=== PATIENT | female | born 1950 | race Caucasian/White ===

== ENCOUNTER 2018-02-15 11:14 | Inpatient (IN) | payer MEDICARE ==
--- NOTE | 2018-02-15 11:42 | ED ---
General Adult HPI - General Chief complaint: Shortness of Breath Stated complaint: heart concerns Time Seen by Provider: 02/15/18 11:23 Source: patient, RN notes reviewed, old records reviewed Mode of arrival: wheelchair Limitations: no limitations - History of Present Illness Initial comments: 67-year-old female with history of asthma presents from her primary care's office with worsening bilateral lower extremity swelling, cough, and worsening dyspnea. Patient is currently on Symbicort, no other medications. She has no history of CAD or heart failure. Over the past several months she has had significant lower extremity edema with fluid-filled bulla. Denies productive cough. Denies fever or chills. Denies URI symptoms. Denies central chest pain. - Related Data Home Medications Medication Instructions Recorded Confirmed Budesonide/Formoterol Fumarate 2 puff INHALATION BID 02/15/18 02/15/18 [Symbicort 160-4.5 Mcg Inhaler] Naproxen Sodium [Aleve] 220 mg PO BID PRN 02/15/18 02/15/18 Allergies Allergy/AdvReac Type Severity Reaction Status Date / Time aspirin Allergy Unknown Verified 02/15/18 12:09 Penicillins Allergy Unknown Verified 02/15/18 12:09 pollen extracts Allergy Unknown Verified 02/15/18 12:09 ragweed pollen Allergy Unknown Verified 02/15/18 12:09 Sulfa (Sulfonamide Allergy Unknown Verified 02/15/18 12:09 Antibiotics) dust Allergy Unknown Uncoded 02/15/18 11:22 Review of Systems ROS Statement: Those systems with pertinent positive or pertinent negative responses have been documented in the HPI. ROS Other: All systems not noted in ROS Statement are negative. Past Medical History Past Medical History: Asthma, Osteoarthritis (OA) History of Any Multi-Drug Resistant Organisms: None Reported Past Surgical History: Tonsillectomy Past Psychological History: No Psychological Hx Reported Smoking Status: Never smoker Past Alcohol Use History: Rare Past Drug Use History: None Reported General Exam Limitations: no limitations General appearance: alert, in no apparent distress Head exam: Present: atraumatic, normocephalic Eye exam: Present: normal appearance, PERRL ENT exam: Present: normal exam Neck exam: Present: normal inspection. Absent: tenderness, meningismus Respiratory exam: Present: wheezes, rales Cardiovascular Exam: Present: regular rate, normal rhythm GI/Abdominal exam: Present: soft. Absent: distended, tenderness Extremities exam: Present: pedal edema Neurological exam: Present: alert, oriented X3. Absent: motor sensory deficit Psychiatric exam: Present: normal affect, normal mood Skin exam: Present: warm, dry. Absent: cyanosis, diaphoretic Course Vital Signs 02/15/18 02/15/18 02/15/18 11:16 12:29 13:42 Temperature 97.2 F L Pulse Rate 85 62 56 L Respiratory 24 18 18 Rate Blood Pressure 134/64 142/66 148/72 O2 Sat by Pulse 95 100 100 Oximetry EKG Findings - EKG Comments: EKG Findings:: EKG atrial fibrillation, with PVC, left axis deviation rate of 80 , QRS duration 88, QTC [address] segment changes Medical Decision Making - Medical Decision Making 67-year-old female presents from the primary care's office with dyspnea, cough, and lower extremity swelling. Patient has no history of heart failure. On exam she does have bilateral Rales, and significant lower extremity edema with fluid filled bulla. EKG is atrial fibrillation with no known history of atrial fibrillation this is rate controlled. No definitive signs of ischemia. Chest x -ray shows pulmonary edema. BNP is elevated at 2890, troponin elevated 0.139. Patient is given Lasix, started on heparin for both atrial fibrillation and troponin elevation. Case discussed with Dr. Mtz who will accept the admission. Cardiology placed on consult for new onset congestive heart failure , elevated troponin, and new onset atrial fibrillation. Echo will be obtained. TSH is added on and pending. - Lab Data Result diagrams: 02/15/18 13:12 02/15/18 12:15 Lab Results 02/15/18 02/15/18 02/15/18 Range/Units 12:15 12:15 13:12 WBC 7.3 (3.8-10.6) k/uL RBC 5.47 H (3.80-5.40) m/uL Hgb 15.7 (11.4-16.0) gm/dL Hct 51.7 H (34.0-46.0) % MCV 94.4 (80.0-100.0) fL MCH 28.7 (25.0-35.0) pg MCHC 30.4 L (31.0-37.0) g/dL RDW 14.6 (11.5-15.5) % Plt Count 144 L (150-450) k/uL Neutrophils % 77 % Lymphocytes % 10 % Monocytes % 6 % Eosinophils % 5 % Basophils % 0 % Neutrophils # 5.6 (1.3-7.7) k/uL Lymphocytes # 0.7 L (1.0-4.8) k/uL Monocytes # 0.5 (0-1.0) k/uL Eosinophils # 0.4 (0-0.7) k/uL Basophils # 0.0 (0-0.2) k/uL Hypochromasia Marked PT (9.0-12.0) sec INR (<1.2) APTT (22.0-30.0) sec Sodium 146 H (137-145) mmol/L Potassium 4.4 (3.5-5.1) mmol/L Chloride 107 (98-107) mmol/L Carbon Dioxide 27 (22-30) mmol/L Anion Gap 12 mmol/L BUN 60 H (7-17) mg/dL Creatinine 1.18 H (0.52-1.04) mg/dL Est GFR (CKD-EPI)AfAm 55 (>60 ml/min/1.73 sqM) Est GFR (CKD-EPI)NonAf 47 (>60 ml/min/1.73 sqM) Glucose 87 (74-99) mg/dL Calcium 8.6 (8.4-10.2) mg/dL Magnesium 2.0 (1.6-2.3) mg/dL Total Bilirubin 0.9 (0.2-1.3) mg/dL AST 38 H (14-36) U/L ALT 32 (9-52) U/L Alkaline Phosphatase 135 H (38-126) U/L Total Creatine Kinase (30-135) U/L CK-MB (CK-2) (0.0-2.4) ng/mL CK-MB (CK-2) Rel Index Troponin I (0.000-0.034) ng/mL NT-Pro-B Natriuret Pep pg/mL Total Protein 6.7 (6.3-8.2) g/dL Albumin 3.4 L (3.5-5.0) g/dL 02/15/18 02/15/18 02/15/18 Range/Units 13:12 13:12 13:12 WBC (3.8-10.6) k/uL RBC (3.80-5.40) m/uL Hgb (11.4-16.0) gm/dL Hct (34.0-46.0) % MCV (80.0-100.0) fL MCH (25.0-35.0) pg MCHC (31.0-37.0) g/dL RDW (11.5-15.5) % Plt Count (150-450) k/uL Neutrophils % % Lymphocytes % % Monocytes % % Eosinophils % % Basophils % % Neutrophils # (1.3-7.7) k/uL Lymphocytes # (1.0-4.8) k/uL Monocytes # (0-1.0) k/uL Eosinophils # (0-0.7) k/uL Basophils # (0-0.2) k/uL Hypochromasia PT 11.6 (9.0-12.0) sec INR 1.2 H (<1.2) APTT 24.5 (22.0-30.0) sec Sodium (137-145) mmol/L Potassium (3.5-5.1) mmol/L Chloride (98-107) mmol/L Carbon Dioxide (22-30) mmol/L Anion Gap mmol/L BUN (7-17) mg/dL Creatinine (0.52-1.04) mg/dL Est GFR (CKD-EPI)AfAm (>60 ml/min/1.73 sqM) Est GFR (CKD-EPI)NonAf (>60 ml/min/1.73 sqM) Glucose (74-99) mg/dL Calcium (8.4-10.2) mg/dL Magnesium (1.6-2.3) mg/dL Total Bilirubin (0.2-1.3) mg/dL AST (14-36) U/L ALT (9-52) U/L Alkaline Phosphatase (38-126) U/L Total Creatine Kinase 94 (30-135) U/L CK-MB (CK-2) 2.4 (0.0-2.4) ng/mL CK-MB (CK-2) Rel Index 2.6 Troponin I 0.139 H* (0.000-0.034) ng/mL NT-Pro-B Natriuret Pep 2890 pg/mL Total Protein (6.3-8.2) g/dL Albumin (3.5-5.0) g/dL Critical Care Time Critical Care Time: Yes Total Critical Care Time: 35 Disposition Clinical Impression: Congestive heart failure, Atrial fibrillation Disposition: ADMITTED IP TO THIS HOSP Condition: Stable Is patient prescribed a controlled substance at d/c from ED?: No Referrals: Kit Mtz MD [Primary Care Provider] - 1-2 days Decision to Admit Reason: Admit from EC Decision Date: 02/15/18 Decision Time: 14:41
--- NOTE | 2018-02-15 12:46 | XR ---
EXAMINATION TYPE: XR chest 2V DATE OF EXAM: 02/15/2018 COMPARISON: NONE HISTORY: Difficulty breathing, shortness of breath TECHNIQUE: Frontal and lateral views of the chest are obtained. FINDINGS: The heart is enlarged. Central vascularity and interstitium are increased. No pneumothorax . No sizable effusion. Bilateral perihilar increased density noted. IMPRESSION: Correlate for congestive heart failure. Follow-up recommended.
[2018-02-15 12:47] LABS: Albumin 3.4 g/dL (3.5-5.0); Calcium 8.6 mg/dL (8.4-10.2); Potassium 4.4 mmol/L (3.5-5.1); Total Bilirubin 0.9 mg/dL (0.2-1.3); Total Protein 6.7 g/dL (6.3-8.2)
[2018-02-15 13:38] LABS: Basophils % (A) 0 %; Eosinophils # (A) 0.4 k/uL (0-0.7); Eosinophils % (A) 5 %; HCT 51.7 % (34.0-46.0); HGB 15.7 gm/dL (11.4-16.0); Hypochromasia Marked; Lymphocytes # (A) 0.7 k/uL (1.0-4.8); Lymphocytes % (A) 10 %; MCH 28.7 pg (25.0-35.0); MCHC 30.4 g/dL (31.0-37.0); MCV 94.4 fL (80.0-100.0); Mean Platelet Volume 7.4; Monocytes # (A) 0.5 k/uL (0-1.0); Monocytes % (A) 6 %; Neutrophils # (A) 5.6 k/uL (1.3-7.7); Neutrophils % (A) 77 %; Platelet Count 144 k/uL (150-450); RBC 5.47 m/uL (3.80-5.40); RDW 14.6 % (11.5-15.5); WBC 7.3 k/uL (3.8-10.6)
[2018-02-15 13:44] LABS: INR 1.2 (<1.2); Partial Thromboplastin Time 24.5 sec (22.0-30.0); Prothrombin Time 11.6 sec (9.0-12.0)
[2018-02-15 14:11] LABS: Creatine Kinase MB 2.4 ng/mL (0.0-2.4)
[2018-02-15 14:26] LABS: Troponin I 0.139 ng/mL (0.000-0.034)
[2018-02-15] MEDS ORDERED: HEPARIN SODIUM,PORCINE 5,000 UNIT/ML 1 ML VIAL IV PRN (14:27)
[2018-02-15] MEDS ORDERED: HEPARIN SODIUM,PORCINE 5,000 UNIT/ML 1 ML VIAL IV ONE (14:27)
[2018-02-15] MEDS ORDERED: FUROSEMIDE 10 MG/ML 4 ML VIAL IV STA (14:28)
[2018-02-15] MEDS ORDERED: HEPARIN SODIUM,PORCINE/D5W PMX 25,000 UNIT in DEXTROSE/WATER 1 500ML.BAG IV SCH (14:30)
[2018-02-15] MEDS ORDERED: NALOXONE 0.4 MG/ML 1 ML VIAL IV PRN (14:34)
--- NOTE | 2018-02-15 15:57 | ECHOF ---
Referral Reason:CHF MEASUREMENTS -------- HEIGHT: 165.1 cm WEIGHT: 161.9 kg BP: 148/72 RVIDd: 3.3 cm (< 3.3) IVSd: 1.6 cm (0.6 - 1.1) LVIDd: 4.2 cm (3.9 - 5.3) LVPWd: 1.5 cm (0.6 - 1.1) IVSs: 1.7 cm LVIDs: 3.6 cm LVPWs: 1.8 cm LA Diam: 4.0 cm (2.7 - 3.8) Ao Diam: 2.8 cm (2.0 - 3.7) AV Cusp: 1.7 cm (1.5 - 2.6) LA Diam: 3.6 cm (2.7 - 3.8) MV E Nigel: 1.02 m/s MV DecT: 196 ms MV A Ingel: 0.53 m/s MV E/A Ratio: 1.92 RAP: 15.00 mmHg RVSP: 62.17 mmHg FINDINGS -------- Undetermined rhythm. This was a technically difficult study with suboptimal views. The left ventricular size is normal. There is moderate concentric left ventricular hypertrophy. O verall left ventricular systolic function is normal with, an EF between 55 - 60 %. The right ventricle is mildly enlarged. The left atrium is mildly dilated. The right atrium was not well visualized. 3ml of Lumason was utilized for enhancement of images. The aortic valve was not well visualized. There is no evidence of aortic regurgitation. There is no evidence of aortic stenosis. The mitral valve is normal. There is trace mitral regurgitation. Mild tricuspid regurgitation present. There is moderate pulmonary hypertension. The right ventric ular systolic pressure, as measured by Doppler, is 62.17mmHg. Trace/mild (physiologic) pulmonic regurgitation. The aortic root size is normal. The inferior vena cava is dilated with poor inspiratory collapse which is consistent with estimated r ight atrial pressure of 20 mmHg. There is no pericardial effusion. CONCLUSIONS -------- 1. Undetermined rhythm. 2. This was a technically difficult study with suboptimal views. 3. The left ventricular size is normal. 4. There is moderate concentric left ventricular hypertrophy. 5. Overall left ventricular systolic function is normal with, an EF between 55 - 60 %. 6. The right ventricle is mildly enlarged. 7. The left atrium is mildly dilated. 8. The right atrium was not well visualized. 9. 3ml of Lumason was utilized for enhancement of images. 10. The aortic valve was not well visualized. 11. There is trace mitral regurgitation. 12. Mild tricuspid regurgitation present. 13. There is moderate pulmonary hypertension. 14. The right ventricular systolic pressure, as measured by Doppler, is 62.17mmHg. 15. Trace/mild (physiologic) pulmonic regurgitation. 16. The aortic root size is normal. 17. The inferior vena cava is dilated with poor inspiratory collapse which is consistent with estimat ed right atrial pressure of 20 mmHg. 18. There is no pericardial effusion. RAIL PROJECT ENGINEER: Ziyad Matthew RDCS
[2018-02-15] MEDS: FUROSEMIDE 10 MG/ML 4 ML VIAL IV SCH (20:14)
[2018-02-15 21:47] LABS: Creatine Kinase MB 2.6 ng/mL (0.0-2.4); Troponin I 0.155 ng/mL (0.000-0.034)
[2018-02-16 02:12] LABS: Creatine Kinase MB 2.5 ng/mL (0.0-2.4); Troponin I 0.157 ng/mL (0.000-0.034)
[2018-02-16 06:30] LABS: Basophils % (A) 1 %; Eosinophils % (A) 9 %; HGB 14.5 gm/dL (11.4-16.0); Hypochromasia Marked; Lymphocytes % (A) 12 %; MCH 29.3 pg (25.0-35.0); MCHC 30.9 g/dL (31.0-37.0); MCV 94.6 fL (80.0-100.0); Mean Platelet Volume 7.4; Monocytes % (A) 6 %; Neutrophils % (A) 70 %; Platelet Count 148 k/uL (150-450); RBC 4.97 m/uL (3.80-5.40); WBC 5.5 k/uL (3.8-10.6)
[2018-02-16 06:31] LABS: Basophils # (A) 0.1 k/uL (0-0.2); Eosinophils # (A) 0.5 k/uL (0-0.7); Lymphocytes # (A) 0.7 k/uL (1.0-4.8); Monocytes # (A) 0.3 k/uL (0-1.0); Neutrophils # (A) 3.9 k/uL (1.3-7.7)
[2018-02-16 07:31] LABS: Troponin I 0.141 ng/mL (0.000-0.034)
--- NOTE | 2018-02-16 07:48 | P.HPIM ---
History of Present Illness H&P Date: 02/16/18 Chief Complaint: Weight gain with shortness of breath. This is a history of physical 67-year-old white female. She states that she had significant weight gain over the last several days and new onset shortness of breath. She is recently returned from [place] where she has relatives. She was at altitude and states that she did have some mild difficulty with dyspnea on exertion, but the weight gain and shortness of breath really worsened over the last 4-5 days. She states over 30-40 pound weight gain in that time. My nurse practitioner did see the patient yesterday and due to her significant weight gain started the significant workup for congestive heart failure but then sent the patient for appropriate evaluation emergency room which showed new onset atrial fibrillation. The patient is now admitted for heart failure. Echocardiogram is now pending. No significant fever or chills are stated. Significant pedal edema is noted. No voiding difficulties otherwise stated. The patient is otherwise a nonsmoker. Review of Systems Constitutional: Reports fatigue, Denies chills, Denies fever Eyes: denies blurred vision, denies pain Ears, nose, mouth and throat: Denies headache, Denies sore throat Cardiovascular: Reports palpitations, Reports shortness of breath, Denies chest pain Respiratory: Denies cough Gastrointestinal: Denies abdominal pain, Denies diarrhea, Denies nausea, Denies vomiting Genitourinary: Denies dysuria, Denies hematuria Musculoskeletal: Denies myalgias Integumentary: Denies pruritus, Denies rash Neurological: Denies numbness, Denies weakness Past Medical History Past Medical History: Asthma, Osteoarthritis (OA) History of Any Multi-Drug Resistant Organisms: None Reported Past Surgical History: Ear Surgery, Tonsillectomy Past Anesthesia/Blood Transfusion Reactions: No Reported Reaction Past Psychological History: No Psychological Hx Reported Smoking Status: Former smoker Past Alcohol Use History: Rare Past Drug Use History: None Reported - Past Family History Mother Family Medical History: Dementia Father Family Medical History: Congestive Heart Failure (CHF) Additional Family Medical History / Comment(s): Valve replacement Medications and Allergies Home Medications Medication Instructions Recorded Confirmed Type Budesonide/Formoterol Fumarate 2 puff INHALATION BID 02/15/18 02/15/18 History [Symbicort 160-4.5 Mcg Inhaler] Naproxen Sodium [Aleve] 220 mg PO BID PRN 02/15/18 02/15/18 History Allergies Allergy/AdvReac Type Severity Reaction Status Date / Time aspirin Allergy Unknown Verified 02/15/18 12:09 Penicillins Allergy Unknown Verified 02/15/18 12:09 pollen extracts Allergy Unknown Verified 02/15/18 12:09 ragweed pollen Allergy Unknown Verified 02/15/18 12:09 Sulfa (Sulfonamide Allergy Unknown Verified 02/15/18 12:09 Antibiotics) dust Allergy Unknown Uncoded 02/15/18 11:22 Physical Exam Vitals: Vital Signs Temp Pulse Pulse Resp BP BP Pulse Ox 02/16/18 04:00 75 24 145/65 02/16/18 00:00 85 24 02/15/18 23:48 85 24 198/79 91 L 02/15/18 20:00 97.1 F L 66 18 118/51 94 L 02/15/18 15:55 96.2 F L 67 18 143/63 99 02/15/18 15:22 66 18 138/85 98 02/15/18 14:52 97.1 F L 02/15/18 13:42 56 L 18 148/72 100 02/15/18 12:29 62 18 142/66 100 02/15/18 11:16 97.2 F L 85 24 134/64 95 Intake and Output 02/15/18 02/16/18 02/16/18 22:59 06:59 14:59 Intake Total 315.333 Output Total 0 Balance 0 315.333 Intake: Intake, IV Titration 315.333 Amount Heparin Sodium,Porcine/ 315.333 D5w Pmx 25,000 unit In Dextrose/Water 1 500ml. bag @ 6.176 UNITS/KG/HR 20 mls/hr IV .Q24H [facility] Rx #:[id number] Output: Urine 0 Other: Voiding Method Toilet Toilet # Voids 1 1 Weight 162.2 kg 159.8 kg - Constitutional General appearance: morbidly obese - EENT Eyes: EOMI - Neck Neck: no lymphadenopathy - Respiratory Respiratory: bilateral: diminished - Cardiovascular Rhythm: irregularly irregular Heart sounds: normal: S1, S2 Abnormal Heart Sounds: no S3 Gallop - Gastrointestinal General gastrointestinal: no tenderness - Neurologic Neurologic: CNII-XII intact - Psychiatric Psychiatric: A&O x's 3 Results CBC & Chem 7: 02/16/18 06:08 02/15/18 12:15 Labs: Abnormal Lab Results - Last 24 Hours (Table) 02/15/18 02/15/18 02/15/18 Range/Units 12:15 13:12 13:12 RBC 5.47 H (3.80-5.40) m/uL Hct 51.7 H (34.0-46.0) % MCHC 30.4 L (31.0-37.0) g/dL Plt Count 144 L (150-450) k/uL Lymphocytes # 0.7 L (1.0-4.8) k/uL INR 1.2 H (<1.2) APTT (22.0-30.0) sec Sodium 146 H (137-145) mmol/L BUN 60 H (7-17) mg/dL Creatinine 1.18 H (0.52-1.04) mg/dL AST 38 H (14-36) U/L Alkaline Phosphatase 135 H (38-126) U/L CK-MB (CK-2) (0.0-2.4) ng/mL Troponin I (0.000-0.034) ng/mL Albumin 3.4 L (3.5-5.0) g/dL 02/15/18 02/15/18 02/15/18 Range/Units 13:12 19:57 19:57 RBC (3.80-5.40) m/uL Hct (34.0-46.0) % MCHC (31.0-37.0) g/dL Plt Count (150-450) k/uL Lymphocytes # (1.0-4.8) k/uL INR (<1.2) APTT 51.0 H (22.0-30.0) sec Sodium (137-145) mmol/L BUN (7-17) mg/dL Creatinine (0.52-1.04) mg/dL AST (14-36) U/L Alkaline Phosphatase (38-126) U/L CK-MB (CK-2) 2.6 H* (0.0-2.4) ng/mL Troponin I 0.139 H* 0.155 H* (0.000-0.034) ng/mL Albumin (3.5-5.0) g/dL 02/16/18 02/16/18 02/16/18 Range/Units 00:16 06:08 06:08 RBC (3.80-5.40) m/uL Hct 47.0 H (34.0-46.0) % MCHC 30.9 L (31.0-37.0) g/dL Plt Count 148 L (150-450) k/uL Lymphocytes # 0.7 L (1.0-4.8) k/uL INR (<1.2) APTT (22.0-30.0) sec Sodium (137-145) mmol/L BUN (7-17) mg/dL Creatinine (0.52-1.04) mg/dL AST (14-36) U/L Alkaline Phosphatase (38-126) U/L CK-MB (CK-2) 2.5 H* (0.0-2.4) ng/mL Troponin I 0.157 H* 0.141 H* (0.000-0.034) ng/mL Albumin (3.5-5.0) g/dL 02/16/18 Range/Units 06:08 RBC (3.80-5.40) m/uL Hct (34.0-46.0) % MCHC (31.0-37.0) g/dL Plt Count (150-450) k/uL Lymphocytes # (1.0-4.8) k/uL INR (<1.2) APTT 41.1 H (22.0-30.0) sec Sodium (137-145) mmol/L BUN (7-17) mg/dL Creatinine (0.52-1.04) mg/dL AST (14-36) U/L Alkaline Phosphatase (38-126) U/L CK-MB (CK-2) (0.0-2.4) ng/mL Troponin I (0.000-0.034) ng/mL Albumin (3.5-5.0) g/dL Thrombosis Risk Factor Assmnt - Choose All That Apply Each Factor Represents 1 point: Obesity (BMI >25) Each Risk Factor Represents 2 Points: Age 61-74 years Thrombosis Risk Factor Assessment Total Risk Factor Score: 3 Thrombosis Risk Factor Assessment Level: Moderate Risk Assessment and Plan (1) Atrial fibrillation Current Visit: Yes Status: Acute Code(s): I48.91 - UNSPECIFIED ATRIAL FIBRILLATION SNOMED Code(s): 74957089 (2) Congestive heart failure Current Visit: Yes Status: Acute Code(s): I50.9 - HEART FAILURE, UNSPECIFIED SNOMED Code(s): 90851337 Plan: Appropriate rate control and anticoagulation if as needed. Diuresis to be instituted. Check echocardiogram. Order CBC CMP and thyroid studies as necessary. Reconcile home medications. Appreciate cardiology input. Time with Patient: Less than 30
[2018-02-16] MEDS: FUROSEMIDE 10 MG/ML 4 ML VIAL IV SCH (07:50)
[2018-02-16] MEDS ORDERED: APIXABAN 5 MG TAB PO SCH (10:45)
[2018-02-16] MEDS ORDERED: FUROSEMIDE 40 MG TAB PO SCH (10:45)
[2018-02-16] MEDS: FUROSEMIDE 250 MG in SODIUM CHLORIDE 0.9% 225 ML IVP SCH (11:10)
[2018-02-16] MEDS: SPIRONOLACTONE 25 MG TAB PO SCH (11:10)
--- NOTE | 2018-02-16 13:21 | NM ---
EXAMINATION TYPE: NM pul vent and perfuse DATE OF EXAM: 02/16/2018 COMPARISON: Chest x-ray 02/15/2018 HISTORY: Congestive heart TECHNIQUE: Utilizing inhalation of 70.4 mCi Tc 99m DTPA aerosol and intravenous injection of 5.23 mC i of Tc 99m MAA, ventilation and perfusion images are acquired post injection in multiple projections . FINDINGS: Decreased radio pharmaceutical uptake is present on both ventilation and perfusion imaging at the lef t lung apex moreso on ventilation and perfusion. Decreased uptake is also noted on ventilation and pe rfusion imaging in the posterior and anterior segments of the right upper lobe. Central clumping of t he radiopharmaceutical is noted on ventilation images. No evident ventilation/perfusion mismatches. The heart is enlarged. IMPRESSION: Intermediate probability for pulmonary embolism
[2018-02-16] MEDS ORDERED: RX INFO: IV CONTRAST WAS GIVEN 1 EACH MISC MISCELLANE PRN (14:42)
[2018-02-16] MEDS: LOSARTAN 25 MG TAB PO SCH (15:09)
[2018-02-16] MEDS: METOPROLOL SUCCINATE (ER) 25 MG TAB.ER.24H PO SCH (15:09)
--- NOTE | 2018-02-16 16:03 | CT ---
EXAMINATION TYPE: CT angio chest DATE OF EXAM: 02/16/2018 COMPARISON: NONE HISTORY: Patient complains of difficulty breathing. CT DLP: 539.4 mGycm CONTRAST: CT chest with contrast and 3D reconstruction with MIP imaging is performed with IV Contrast, patient injected with 80 mL of Isovue 370. Contrast-enhanced CT of the chest was performed through the course of the pulmonary arteries with abhijeet g and mediastinal window settings submitted. 3D reconstruction with MIP imaging was also performed. PULMONARY ARTERIES: Mild Filling defects are seen within tertiary lower lobe pulmonary arterial branc hes. Filling defect seen within the second order right upper lobe pulmonary arterial branch. No evide nce for sagittal component. LUNGS: The lungs are clear and free of infiltrate. No evidence for atelectasis. No pulmonary nodule or mass is detected. No pleural effusion. MEDIASTINUM: Thoracic aorta is of normal caliber,however, evaluation is limited given timing of the contrast bolus. If there is concern for thoracic aortic pathology consider JACOB. Correlate clinicall y . The heart is enlarged. Pulmonary arterial hypertension noted. No evidence for mediastinal mass. No mediastinal lymph nodes greater than 1cm. HILAR STRUCTURES: No evidence for mass. No hilar lymph nodes greater than 1 cm. UPPER ABDOMEN: No significant abnormality is seen. IMPRESSION: 1. Mild pulmonary embolism as noted above. A Red level critical message alert has been initiated for Kit Mtz MD via the [employer] on 02/16/2018 4:01 PM. This message alert has been sent to Kit Mtz MD via t preferences provided by the clinician for the receipt of Radiology Critical Findings. Message ID [id number].
[2018-02-16] MEDS ORDERED: HEPARIN SODIUM,PORCINE 5,000 UNIT/ML 1 ML VIAL IV PRN (16:13)
[2018-02-16 17:09] LABS: Basophils % (A) 1 %; Eosinophils # (A) 0.4 k/uL (0-0.7); Eosinophils % (A) 6 %; HCT 50.9 % (34.0-46.0); HGB 15.7 gm/dL (11.4-16.0); Hypochromasia Moderate; Lymphocytes # (A) 0.7 k/uL (1.0-4.8); Lymphocytes % (A) 11 %; MCH 28.9 pg (25.0-35.0); MCHC 30.8 g/dL (31.0-37.0); MCV 93.7 fL (80.0-100.0); Mean Platelet Volume 7.4; Monocytes # (A) 0.4 k/uL (0-1.0); Monocytes % (A) 7 %; Neutrophils # (A) 4.8 k/uL (1.3-7.7); Neutrophils % (A) 75 %; Platelet Count 175 k/uL (150-450); RBC 5.43 m/uL (3.80-5.40); RDW 14.7 % (11.5-15.5); WBC 6.4 k/uL (3.8-10.6)
[2018-02-16 17:17] LABS: INR 1.2 (<1.2); Partial Thromboplastin Time 25.6 sec (22.0-30.0); Prothrombin Time 11.5 sec (9.0-12.0)
[2018-02-16] MEDS: HEPARIN SODIUM,PORCINE/D5W PMX 25,000 UNIT in DEXTROSE/WATER 1 500ML.BAG IV SCH (17:20)
--- NOTE | 2018-02-16 17:55 | CONS ---
CONSULTATION Mrs. Funk is a 67-year-old lady with a known history of bronchial asthma who was sent in from her primary care physician's office with worsening lower extremity edema, cough and swelling. The patient has history of bronchial asthma, takes inhalers, Naprosyn and on questioning, she has had lower extremity edema for a long time, but it has gotten worse. She denies any chest pain. Complains of cough and nonproductive type. No evidence of any chest discomfort. PAST MEDICAL HISTORY: Remarkable for asthma, obesity, chronic lower extremity edema, osteoarthritis. The patient is status post tonsillectomy. No other major surgeries. SOCIAL HISTORY: Patient is not a smoker, does not use alcohol. MEDICATIONS AT HOME: Include: 1. Formoterol/budesonide inhaler. 2. Naprosyn. ALLERGIES: A question of PENICILLIN allergy and also allergic to ASPIRIN. I was asked to see this patient mainly because of a new onset of atrial fibrillation and possible congestive heart failure. At the time of my evaluation, she tells me that her breathing is actually a bit better and her cough, which seems to be the most bothersome, has also improved. She is unaware of the fact she has atrial fibrillation, but does have a history of chronic lower extremity edema. Denies any chest pain or palpitations. Past medical history is remarkable for bronchial asthma and osteoarthritis. EXAMINATION: Blood pressure is about 140/70, pulse rate is about 80-90, irregular. HEENT: Unremarkable. Fundus was not examined by me. Neck is supple. There is JVD of at least 1 cm or more. There is no carotid bruit. Heart reveals S1, S2 with irregular rate and rhythm. No significant carotid bruit. There is a soft systolic murmur audible. Lungs reveal bilateral diminished air entry. Abdomen is soft, nontender. Lower extremities reveal significant lower extremity edema which is chronic and I cannot feel any pulses. CENTRAL NERVOUS SYSTEM: Limited exam reveals no focal deficits. IMPRESSION: 1. Probable significant cor pulmonale with right-sided failure type picture with jugular venous distention and significant lower extremity edema. 2. New onset atrial fibrillation. 3. Exacerbation of diastolic heart failure which is acute heart failure. 4. Pulmonary hypertension. 5. History of bronchial asthma. RECOMMENDATIONS: I am recommending that we initiate her on Eliquis 5 mg b[address]d., place her on a Lasix drip, obtain a V/Q scan in view of the possibility of a chronic pulmonary embolism for this lady and also add Aldactone to her regimen and based on her clinical course, I will make further recommendations. Her prognosis remains guarded with these multiple issues. Thank you very much for the consult. CHRISTOPH / BILL: [id number] /
[2018-02-17] MEDS: HEPARIN SODIUM,PORCINE/D5W PMX 25,000 UNIT in DEXTROSE/WATER 1 500ML.BAG IV SCH ×2 (04:15→05:43)
[2018-02-17 06:35] LABS: Basophils % (A) 1 %; Eosinophils # (A) 0.4 k/uL (0-0.7); Eosinophils % (A) 6 %; HCT 47.7 % (34.0-46.0); HGB 14.5 gm/dL (11.4-16.0); Hypochromasia Moderate; Lymphocytes # (A) 0.7 k/uL (1.0-4.8); Lymphocytes % (A) 11 %; MCH 28.2 pg (25.0-35.0); MCHC 30.4 g/dL (31.0-37.0); Mean Platelet Volume 7.5; Monocytes # (A) 0.4 k/uL (0-1.0); Monocytes % (A) 6 %; Neutrophils # (A) 5.2 k/uL (1.3-7.7); Neutrophils % (A) 76 %; Platelet Count 157 k/uL (150-450); RBC 5.12 m/uL (3.80-5.40); RDW 14.8 % (11.5-15.5); WBC 6.8 k/uL (3.8-10.6)
--- NOTE | 2018-02-17 07:53 | P.PN ---
Subjective Progress Note Date: 02/17/18 Principal diagnosis: This is a continue present 67-year-old white female essentially admitted for heart failure with atrial fibrillation. However, yesterday cardiology ordered CTA of the chest which did show moderate pulmonary embolism. No previous history of DVT in the past she is complaining of left heel pain. No significant nausea or vomiting is stated. No new voiding difficulties except that she has polyuria related to diuretic. Objective - Vital Signs Vital signs: Vital Signs Temp 96.8 F L 02/17/18 04:00 Pulse 52 L 02/17/18 04:00 Resp 18 02/17/18 04:00 BP 123/69 02/17/18 04:00 Pulse Ox 93 L 02/17/18 04:00 Intake & Output 02/16/18 02/17/18 02/17/18 18:59 06:59 18:59 Intake Total 851.333 500 126.28 Output Total 500 750 Balance 351.333 -250 126.28 Weight 159.8 kg 157.9 kg Intake: Intake, IV Titration 431.333 500 126.28 Amount Furosemide 250 mg In 70 Sodium Chloride 0.9% 225 ml @ 10 MG/HR 10 mls/hr IVP .Q24H [facility] Rx#: [id number] Heparin Sodium,Porcine/ 46 500 126.28 D5w Pmx 25,000 unit In Dextrose/Water 1 500ml. bag @ 14.38 UNITS/KG/HR 45.95 mls/hr IV .[id number] [facility] Rx#:[id number] Heparin Sodium,Porcine/ 315.333 D5w Pmx 25,000 unit In Dextrose/Water 1 500ml. bag @ 6.176 UNITS/KG/HR 20 mls/hr IV .Q24H [facility] Rx #:[id number] Oral 420 Output: Urine 500 750 Other: Voiding Method Toilet Toilet Bedside Commode # Voids 3 - Constitutional General appearance: Present: morbidly obese - EENT Eyes: Absent: abnormal pupil - Respiratory Respiratory: bilateral: diminished - Cardiovascular Rhythm: irregularly irregular Heart sounds: normal: S1, S2 Abnormal Heart Sounds: Absent: S3 Gallop - Gastrointestinal General gastrointestinal: Absent: tenderness - Neurologic Neurologic: Present: CNII-XII intact - Psychiatric Psychiatric: Present: A&O x's 3 - Labs CBC & Chem 7: 02/17/18 06:10 02/16/18 06:08 Labs: Abnormal Lab Results - Last 24 Hours (Table) 02/16/18 02/16/18 02/16/18 Range/Units 16:51 16:51 21:56 RBC 5.43 H (3.80-5.40) m/uL Hct 50.9 H (34.0-46.0) % MCHC 30.8 L (31.0-37.0) g/dL Lymphocytes # 0.7 L (1.0-4.8) k/uL INR 1.2 H (<1.2) APTT 74.5 H (22.0-30.0) sec 02/17/18 02/17/18 Range/Units 06:10 06:10 RBC (3.80-5.40) m/uL Hct 47.7 H (34.0-46.0) % MCHC 30.4 L (31.0-37.0) g/dL Lymphocytes # 0.7 L (1.0-4.8) k/uL INR (<1.2) APTT 193.2 H* (22.0-30.0) sec Assessment and Plan (1) Atrial fibrillation Current Visit: Yes Status: Acute Code(s): I48.91 - UNSPECIFIED ATRIAL FIBRILLATION SNOMED Code(s): 76239908 (2) Congestive heart failure Current Visit: Yes Status: Acute Code(s): I50.9 - HEART FAILURE, UNSPECIFIED SNOMED Code(s): 57164961 (3) Pulmonary embolus Current Visit: Yes Status: Acute Code(s): I26.99 - OTHER PULMONARY EMBOLISM WITHOUT ACUTE COR PULMONALE SNOMED Code(s): 87307666 Plan: Continue anticoagulation. Continue diuresis. Check CBC and CMP in a.m. Family history is noncontributory to any type of formal embolism in the past. See orders otherwise. The patient is clinically improving but had a long discussion with her regarding chronic anticoagulation given her arrhythmia and pulmonary embolus. We will go ahead and check left foot film given her pain today. Time with Patient: Less than 30
[2018-02-17 08:09] LABS: Albumin 3.3 g/dL (3.5-5.0); Calcium 8.9 mg/dL (8.4-10.2); Potassium 4.2 mmol/L (3.5-5.1); Total Bilirubin 0.8 mg/dL (0.2-1.3); Total Protein 6.4 g/dL (6.3-8.2)
[2018-02-17] MEDS: METOPROLOL SUCCINATE (ER) 25 MG TAB.ER.24H PO SCH (08:51)
[2018-02-17] MEDS: LOSARTAN 25 MG TAB PO SCH (08:52)
[2018-02-17] MEDS: SPIRONOLACTONE 25 MG TAB PO SCH (08:52)
--- NOTE | 2018-02-17 11:22 | XR ---
Left foot HISTORY: Heel pain 3 views of the left foot Bone mineralization is reduced, digits are flexed. Degenerative changes present at the first metatars ophalangeal joint. Alignment is maintained. There is soft tissue swelling. There is a plantar calcane al spur. Degenerative changes are present, intertarsal joints show joint space loss and marginal spur ring. There is a plantar calcaneal spur. Soft tissue calcifications are likely vascular. Degenerative change also present at the tibiotalar joint. IMPRESSION: Osteoarthritis, plantar calcaneus spur, osteopenia and soft tissue swelling.
[2018-02-17] MEDS: FUROSEMIDE 250 MG in SODIUM CHLORIDE 0.9% 225 ML IVP SCH (11:31)
[2018-02-17] MEDS: APIXABAN 5 MG TAB PO SCH ×2 (12:40→20:54)
--- NOTE | 2018-02-17 15:07 | P.PN ---
Subjective Progress Note Date: 02/17/18 This is a 67-year-old female with known history of asthma who was directed to come to the hospital by her primary care doctor's office with symptoms of worsening lower extremity edema with associated cough, shortness of breath and swelling. She was seen in consultation yesterday by Dr. Alvin Garcia and initiated on a Lasix drip. Patient also had a d-dimer performed which came back to be abnormal and subsequent to that underwent a VQ scan which showed intermediate probability for pulmonary embolism. Subsequent to that a CT of the chest was performed which revealed a small pulmonary embolism. Patient's Eliquis was discontinued and she was initiated on IV heparin, high-dose for PE protocol. Patient did diuresis to the night on the IV Lasix drip. Her weight is down 2 kg today. At pressure 140/80 with a heart rate in the 80s, 92% on room air. White blood cell count 6.8, hemoglobin 14.5, platelet count 157. Sodium 148, potassium 4.2, BUN 55, creatinine 1.0. Objective - Vital Signs Vital signs: Vital Signs Temp 97.2 F L 02/17/18 12:00 Pulse 89 02/17/18 12:00 Resp 18 02/17/18 12:00 BP 141/80 02/17/18 12:00 Pulse Ox 92 L 02/17/18 12:00 Intake & Output 02/16/18 02/17/18 02/17/18 18:59 06:59 18:59 Intake Total 851.333 500 369.78 Output Total 500 750 500 Balance 351.333 -250 -130.22 Weight 159.8 kg 157.9 kg Intake: Intake, IV Titration 431.333 500 369.78 Amount Furosemide 250 mg In 70 243.5 Sodium Chloride 0.9% 225 ml @ 10 MG/HR 10 mls/hr IVP .Q24H [facility] Rx#: [id number] Heparin Sodium,Porcine/ 46 500 126.28 D5w Pmx 25,000 unit In Dextrose/Water 1 500ml. bag @ 14.38 UNITS/KG/HR 45.95 mls/hr IV .[id number] [facility] Rx#:[id number] Heparin Sodium,Porcine/ 315.333 D5w Pmx 25,000 unit In Dextrose/Water 1 500ml. bag @ 6.176 UNITS/KG/HR 20 mls/hr IV .Q24H [facility] Rx #:[id number] Oral 420 Output: Urine 500 750 500 Other: Voiding Method Toilet Toilet Toilet Bedside Commode Bedside Commode # Voids 3 2 # Bowel Movements 2 - Exam PHYSICAL EXAMINATION: GENERAL: HEENT: Head is atraumatic, normocephalic. Pupils equal, round. Sclera anicteric. Conjunctiva are clear. Mucous membranes of the mouth are moist. Neck is supple. There is elevated jugular venous pressure.] bruit is heard. HEART EXAMINATION: Heart S1, S2 normal. No murmur or gallop heard. CHEST EXAMINATION: Lungs are clear with diminished air entry to bilateral bases. No chest wall tenderness is noted on palpation or with deep breathing. ABDOMEN: Soft, obese, nontender. Bowel sounds are heard. No organomegaly noted. EXTREMITIES:[ 1+ peripheral pulses with 2-3+ evidence of peripheral edema , significant chronic venous stasis noted. NEUROLOGIC patient is awake, alert and oriented -3. . - Labs CBC & Chem 7: 02/17/18 06:10 02/17/18 06:10 Labs: Abnormal Lab Results - Last 24 Hours (Table) 02/16/18 02/16/18 02/16/18 Range/Units 16:51 16:51 21:56 RBC 5.43 H (3.80-5.40) m/uL Hct 50.9 H (34.0-46.0) % MCHC 30.8 L (31.0-37.0) g/dL Lymphocytes # 0.7 L (1.0-4.8) k/uL INR 1.2 H (<1.2) APTT 74.5 H (22.0-30.0) sec Sodium (137-145) mmol/L Carbon Dioxide (22-30) mmol/L BUN (7-17) mg/dL Creatinine (0.52-1.04) mg/dL Alkaline Phosphatase (38-126) U/L Albumin (3.5-5.0) g/dL 02/17/18 02/17/18 02/17/18 Range/Units 06:10 06:10 06:10 RBC (3.80-5.40) m/uL Hct 47.7 H (34.0-46.0) % MCHC 30.4 L (31.0-37.0) g/dL Lymphocytes # 0.7 L (1.0-4.8) k/uL INR (<1.2) APTT 193.2 H* (22.0-30.0) sec Sodium 148 H (137-145) mmol/L Carbon Dioxide 32 H (22-30) mmol/L BUN 55 H (7-17) mg/dL Creatinine 1.09 H (0.52-1.04) mg/dL Alkaline Phosphatase 128 H (38-126) U/L Albumin 3.3 L (3.5-5.0) g/dL Assessment and Plan Plan: Assessment and plan #1 congestive heart failure acute on chronic, preserved left ventricular systolic function. #2 obesity #3 pulmonary embolism, currently on IV heparin #4 asthma Plan We will recommend to continue the patient on IV Lasix drip, check lytes BUN and creatinine in the morning. We will also repeat a chest x-ray tomorrow. Patient is currently on high-dose heparin drip per PE protocol, we'll continue this for the next 24 hours then initiating anticoagulation with Eliquis for PE protocol. DNP note has been reviewed, I agree with a documented findings and plan of care. Patient was seen and examined.
[2018-02-18 06:38] LABS: Basophils % (A) 0 %; Eosinophils # (A) 0.3 k/uL (0-0.7); Eosinophils % (A) 3 %; HCT 45.2 % (34.0-46.0); Hypochromasia Moderate; Lymphocytes # (A) 0.9 k/uL (1.0-4.8); Lymphocytes % (A) 9 %; MCH 28.8 pg (25.0-35.0); MCV 93.1 fL (80.0-100.0); Mean Platelet Volume 7.3; Monocytes # (A) 0.6 k/uL (0-1.0); Monocytes % (A) 6 %; Neutrophils # (A) 7.9 k/uL (1.3-7.7); Neutrophils % (A) 81 %; Platelet Count 177 k/uL (150-450); RBC 4.86 m/uL (3.80-5.40); RDW 15.2 % (11.5-15.5); WBC 9.8 k/uL (3.8-10.6)
[2018-02-18 06:48] LABS: Calcium 8.7 mg/dL (8.4-10.2); Potassium 3.6 mmol/L (3.5-5.1); Total Bilirubin 0.8 mg/dL (0.2-1.3)
[2018-02-18] MEDS ORDERED: ALBUTEROL NEBULIZED 2.5 MG/3 ML INHALATION PRN (07:48)
--- NOTE | 2018-02-18 08:13 | P.PN ---
Subjective Principal diagnosis: . Continuing care. Worsening cough. This is a continue progress on a 67-year-old white female centimeter for atrial fibrillation and found to have ulnar embolus. Most likely this is related to her arrhythmia and immobility when she was driving from [facility]. She complains of left foot pain and would like Silvadene cream for her left lower extremity. X-ray does show plantar spur of the foot. No voiding difficulties except for polyuria secondary to diuresis. The patient is currently on furosemide drip. The patient has had minimal ambulation. Objective - Vital Signs Vital signs: Vital Signs Temp 98.0 F 02/18/18 04:00 Pulse 78 02/18/18 04:00 Resp 19 02/18/18 04:00 BP 137/70 02/18/18 04:00 Pulse Ox 93 L 02/18/18 04:00 Intake & Output 02/17/18 02/18/18 02/18/18 18:59 06:59 18:59 Intake Total 827.78 Output Total 500 450 Balance 327.78 -450 Weight 157.4 kg Intake: Intake, IV Titration 369.78 Amount Furosemide 250 mg In 243.5 Sodium Chloride 0.9% 225 ml @ 10 MG/HR 10 mls/hr IVP .Q24H [facility] Rx#: [id number] Heparin Sodium,Porcine/ 126.28 D5w Pmx 25,000 unit In Dextrose/Water 1 500ml. bag @ 14.38 UNITS/KG/HR 45.95 mls/hr IV .[id number] [facility] Rx#:[id number] Oral 458 Output: Urine 500 450 Other: Voiding Method Toilet Toilet Bedside Commode Bedside Commode # Voids 2 1 # Bowel Movements 2 1 - Constitutional General appearance: Present: morbidly obese - Respiratory Respiratory: right: wheezing - Cardiovascular Rhythm: irregularly irregular Heart sounds: normal: S1, S2 Abnormal Heart Sounds: Absent: S3 Gallop - Gastrointestinal General gastrointestinal: Present: soft. Absent: tenderness - Musculoskeletal Musculoskeletal: Present: generalized weakness - Psychiatric Psychiatric: Present: A&O x's 3, intact judgment & insight - Labs CBC & Chem 7: 02/18/18 05:50 02/18/18 05:50 Labs: Abnormal Lab Results - Last 24 Hours (Table) 02/17/18 02/18/18 02/18/18 Range/Units 06:10 05:50 05:50 Neutrophils # 7.9 H (1.3-7.7) k/uL Lymphocytes # 0.9 L (1.0-4.8) k/uL Sodium 148 H (137-145) mmol/L Carbon Dioxide 32 H 32 H (22-30) mmol/L BUN 55 H 45 H (7-17) mg/dL Creatinine 1.09 H (0.52-1.04) mg/dL Alkaline Phosphatase 128 H (38-126) U/L Total Protein 6.0 L (6.3-8.2) g/dL Albumin 3.3 L 3.0 L (3.5-5.0) g/dL Assessment and Plan (1) Atrial fibrillation Current Visit: Yes Status: Acute Code(s): I48.91 - UNSPECIFIED ATRIAL FIBRILLATION SNOMED Code(s): 69423606 (2) Congestive heart failure Current Visit: Yes Status: Acute Code(s): I50.9 - HEART FAILURE, UNSPECIFIED SNOMED Code(s): 20413125 (3) Pulmonary embolus Current Visit: Yes Status: Acute Code(s): I26.99 - OTHER PULMONARY EMBOLISM WITHOUT ACUTE COR PULMONALE SNOMED Code(s): 35331786 Plan: Continue Eliquis. She will check CBC and CMP in a.m. Start Silvadene cream in the left lower extremity. Increase ambulation as possible with continued diuresis. Dr. Lott's group will be covering for the weekend. Prognosis is improving. Time with Patient: Less than 30
[2018-02-18] MEDS: LOSARTAN 25 MG TAB PO SCH (08:16)
[2018-02-18] MEDS: APIXABAN 5 MG TAB PO SCH ×2 (08:16→21:35)
[2018-02-18] MEDS: METOPROLOL SUCCINATE (ER) 25 MG TAB.ER.24H PO SCH (08:16)
[2018-02-18] MEDS: SPIRONOLACTONE 25 MG TAB PO SCH (08:17)
[2018-02-18] MEDS ORDERED: POTASSIUM CHLORIDE ER 20 MEQ TAB.ER PO STA (10:06)
[2018-02-18] MEDS: METOLAZONE 5 MG TAB PO SCH (11:38)
[2018-02-18] MEDS: FUROSEMIDE 250 MG in SODIUM CHLORIDE 0.9% 225 ML IVP SCH (11:49)
--- NOTE | 2018-02-18 14:04 | P.CNPUL ---
History of Present Illness Consult date: 02/18/18 Reason for consult: dyspnea History of present illness: A 67-year-old female patient, morbidly obese with chronic lower extremity edema and bronchial asthma. Patient has chronic difficulties mobility and gait and she also admits to chronic lower extremity edema. Her lower extremity edema has got worse over the past 6 months to the point where she is currently weeping from the skin surface and this has affected her ability to move and walk. She has some limited cough and congestion. No chest pain. No pleurisy. No hemoptysis. No chest pain. She presented with some borderline elevation of the proBNP level at 2890 in addition to troponin leak levels being at 0.1 times for respectively. The white cell count is not elevated. Hemoglobin is at 14.5. Echo of the heart showed an ejection fraction of 55-60% along with right ventricular enlargement and right-sided pressure of 62 mmHg in addition to dilation of the IVC with poor inspiratory collapse consistent with increased filling pressure in the right atrial pressure of around 20 mmHg. No evidence of any pericardial effusion. There is evidence of moderate concentric left ventricular hypertrophy consistent with hypertensive heart disease. VQ scan was of indeterminate probability. CT angios the chest shows some limited groundglass changes bilaterally and addition to evidence of questionable filling defect in the lower lobe pulmonary artery branches bilaterally, involving the tertiary already artery branches in addition to a filling defect within the second branch of the right upper lobe pulmonary artery. Patient was started on IV heparin. The patient was subsequently switched Eliquis. The patient was also diuresed with Lasix and currently symptomatic grams of IV Lasix on an hourly basis and addition to Zaroxolyn 5 mg by mouth daily. She is also on Aldactone. Clinically feeling better. Less short of breath. No altered mentation. No history of obstructive sleep apnea although this is a concern as the patient is a component of chronic metabolic alkalosis and the blood work which raises the concern for chronic hypoxic and hypercapnic the story failure and obesity hypoventilation syndrome. Review of Systems Constitutional: Reports daytime sleepiness, Reports fatigue, Reports weakness, Reports weight gain Eyes: denies blurred vision, denies bulging eye, denies decreased vision Ears: deny: decreased hearing, ear discharge, earache, tinnitus Ears, nose, mouth and throat: Denies headache, Denies sore throat Cardiovascular: Reports decreased exercise tolerance, Reports dyspnea on exertion, Reports edema, Reports shortness of breath Respiratory: Reports dyspnea, Reports snoring Gastrointestinal: Denies abdominal pain, Denies diarrhea, Denies nausea, Denies vomiting Genitourinary: Denies dysuria, Denies hematuria Musculoskeletal: Reports limitation of motion Musculoskeletal: bilateral: ankle swelling, absent: ankle pain, ankle stiffness Integumentary: Reports wounds Neurological: Denies numbness, Denies weakness Psychiatric: Reports as per HPI Endocrine: Denies fatigue, Denies weight change Past Medical History Past Medical History: Asthma, Osteoarthritis (OA) Additional Past Medical History / Comment(s): Morbid obesity, BMI 57.7, chronic bronchial asthma, osteoarthritis, pulmonary hypertension moderate to severe with evidence of right-sided heart failure. History of Any Multi-Drug Resistant Organisms: None Reported Past Surgical History: Ear Surgery, Tonsillectomy Past Anesthesia/Blood Transfusion Reactions: No Reported Reaction Past Psychological History: No Psychological Hx Reported Smoking Status: Former smoker Past Alcohol Use History: Rare Past Drug Use History: None Reported - Past Family History Mother Family Medical History: Dementia Father Family Medical History: Congestive Heart Failure (CHF) Additional Family Medical History / Comment(s): Valve replacement Medications and Allergies Home Medications Medication Instructions Recorded Confirmed Type Budesonide/Formoterol Fumarate 2 puff INHALATION BID 02/15/18 02/15/18 History [Symbicort 160-4.5 Mcg Inhaler] Naproxen Sodium [Aleve] 220 mg PO BID PRN 02/15/18 02/15/18 History Allergies Allergy/AdvReac Type Severity Reaction Status Date / Time aspirin Allergy Unknown Verified 02/15/18 12:09 Penicillins Allergy Unknown Verified 02/15/18 12:09 pollen extracts Allergy Unknown Verified 02/15/18 12:09 ragweed pollen Allergy Unknown Verified 02/15/18 12:09 Sulfa (Sulfonamide Allergy Unknown Verified 02/15/18 12:09 Antibiotics) dust Allergy Unknown Uncoded 02/15/18 11:22 Physical Exam Vitals: Vital Signs Temp Pulse Resp BP Pulse Ox 02/18/18 11:45 83 18 02/18/18 11:44 97.6 F 83 18 121/64 93 L 02/18/18 08:00 97.8 F 73 18 125/51 94 L 02/18/18 04:00 98.0 F 78 19 137/70 93 L 06/01/18 00:00 97.6 F 83 20 128/78 93 L 02/17/18 20:00 98.2 F 92 18 144/76 93 L 02/17/18 16:00 98.1 F 67 18 117/74 94 L Intake and Output 02/17/18 02/18/18 02/18/18 22:59 06:59 14:59 Intake Total 300 Output Total 450 Balance -450 300 Intake: Oral 300 Output: Urine 450 Other: Voiding Method Toilet Toilet Bedside Commode Bedside Commode # Voids 1 1 # Bowel Movements 1 Weight 157.4 kg Gen. appearance the patient is morbidly obese, comfortable likely distress, BMI 57.7 Head exam was generally normal. There was no scleral icterus or corneal arcus. Mucous membranes were moist. Neck is short and supple and there is significant crowding of posterior pharynx with a Mallampati class IV.Neck was supple and without jugular venous distension , thyromegaly, or carotid bruits. Carotids were easily palpable bilaterally. There was no adenopathy. Lungs sounds are diminished in lung bases bilaterally otherwise clear. There is no wheezes or rhonchi or any crackles. Heart sounds are showing accentuation of the second heart sound. No right ventricular heave or thrill. No significant murmurs and the patient has a regular S1 and S2 consistent with sinus rhythm. Abdomen is morbidly obese and orders cannot be accurately palpated. There is no direct tenderness rebound tensile guarding. Organs cannot be accurately assessed. No ascites. Extremities show extensive edema in lower oximetry is bilaterally +3 pitting in addition to weeping of fluid from the skin surface and superficial skin ulceration without evidence of any cellulitis. Pulses are diminished at the present. There is no cyanosis or clubbing. Neurologically the patient is awake and alert and there is no focal neurological deficit. Skin that is some superficial wounds in lower extremity is bilaterally with the fluid is seeping off due to extensive edema lower extremities. No cellulitis. No deep wounds. Results - Laboratory Findings CBC and BMP: 02/18/18 05:50 02/18/18 05:50 PT/INR, D-dimer PT 11.5 sec (9.0-12.0) 02/16/18 16:51 INR 1.2 (<1.2) H 02/16/18 16:51 Abnormal lab findings: Abnormal Labs 02/15/18 02/15/18 02/15/18 12:15 13:12 13:12 RBC 5.47 H Hct 51.7 H MCHC 30.4 L Plt Count 144 L Neutrophils # Lymphocytes # 0.7 L INR 1.2 H APTT Sodium 146 H Carbon Dioxide BUN 60 H Creatinine 1.18 H AST 38 H Alkaline Phosphatase 135 H CK-MB (CK-2) Troponin I Total Protein Albumin 3.4 L 02/15/18 02/15/18 02/15/18 13:12 19:57 19:57 RBC Hct MCHC Plt Count Neutrophils # Lymphocytes # INR APTT 51.0 H Sodium Carbon Dioxide BUN Creatinine AST Alkaline Phosphatase CK-MB (CK-2) 2.6 H* Troponin I 0.139 H* 0.155 H* Total Protein Albumin 02/16/18 02/16/18 02/16/18 00:16 06:08 06:08 RBC Hct 47.0 H MCHC 30.9 L Plt Count 148 L Neutrophils # Lymphocytes # 0.7 L INR APTT Sodium Carbon Dioxide BUN Creatinine AST Alkaline Phosphatase CK-MB (CK-2) 2.5 H* Troponin I 0.157 H* 0.141 H* Total Protein Albumin 02/16/18 02/16/18 02/16/18 06:08 16:51 16:51 RBC 5.43 H Hct 50.9 H MCHC 30.8 L Plt Count Neutrophils # Lymphocytes # 0.7 L INR 1.2 H APTT 41.1 H Sodium Carbon Dioxide BUN Creatinine AST Alkaline Phosphatase CK-MB (CK-2) Troponin I Total Protein Albumin 02/16/18 02/17/18 02/17/18 21:56 06:10 06:10 RBC Hct 47.7 H MCHC 30.4 L Plt Count Neutrophils # Lymphocytes # 0.7 L INR APTT 74.5 H Sodium 148 H Carbon Dioxide 32 H BUN 55 H Creatinine 1.09 H AST Alkaline Phosphatase 128 H CK-MB (CK-2) Troponin I Total Protein Albumin 3.3 L 02/17/18 02/18/18 02/18/18 06:10 05:50 05:50 RBC Hct MCHC Plt Count Neutrophils # 7.9 H Lymphocytes # 0.9 L INR APTT 193.2 H* Sodium Carbon Dioxide 32 H BUN 45 H Creatinine AST Alkaline Phosphatase CK-MB (CK-2) Troponin I Total Protein 6.0 L Albumin 3.0 L - Diagnostic Findings Chest x-ray: image reviewed Assessment and Plan Plan: Assessment 1 morbid obesity/obesity hypoventilation syndrome with suspect obstructive sleep apnea. The patient has obvious features of pickwickian syndrome as she has a BMI of 57.7, chronic hypoxic and hypercapnic respiratory failure with secondary metabolic alkalosis, moderate severe pulmonary potential related to chronic hypoxemic respiratory failure and evidence of right-sided heart failure 2 extensive lower extremity, +3 pitting secondary to above 3 pulmonary embolism, suspicious yet not definite. Patient has been subjected to anticoagulation to which I agree specially with her morbid obesity and sedentary lifestyle and the patient remains with an increased risk of having VTE in the future. Ongoing also suggest to obtain a Doppler of the lower extremities to rule out any DVT specially with extensive edema in the legs bilaterally 4 chronic bronchial asthma currently inactive in stable 5 osteoarthritis 6 hypertensive heart disease with concentric left ventricular hypertrophy Plan Lasix drip at 10 mg an hour, Zaroxolyn and Aldactone combination. Monitor renal function. Monitor electrolytes. Maintain negative fluid balance. Silvadene cream to lower extremity along with Ras wraps and keep the legs elevated. Continue albuterol about treatments 3 times a day [id number]. Doppler of the lower extremity. Echocardiogram was noted. Continue articulation with Thang. Outpatient sleep evaluation. We'll follow.
--- NOTE | 2018-02-18 14:41 | US ---
EXAMINATION TYPE: US venous doppler duplex LE DATE OF EXAM: 02/18/2018 2:07 PM COMPARISON: NONE CLINICAL HISTORY: rule out dvt. Morbidly obese patient with bilateral leg ulcers that are weeping and swollen, painful legs SIDE PERFORMED: Bilateral TECHNIQUE: The lower extremity deep venous system is examined utilizing real time linear array sonog estella with graded compression, doppler sonography and color-flow sonography. VESSELS IMAGED: External Iliac Vein (EIV) Common Femoral Vein Deep Femoral Vein Greater Saphenous Vein * Femoral Vein Popliteal Vein - unable to see popiteal vessels in either leg Small Saphenous Vein * Proximal Calf Veins (* superficial vessels) very limited exam patient was coughing throughout exam which closed valves limiting color imaging Right Leg: Unable to sonographically r/o a blood clot due to inability to see vessels due to patient habitus and very tender legs, unable to do compression imaging Left Leg: Unable to sonographically r/o a blood clot due to inability to see vessels due to patient habitus and very tender legs, unable to do compression imaging IMPRESSION: Essentially nondiagnostic study due to above.
--- NOTE | 2018-02-18 14:53 | XR ---
EXAMINATION TYPE: XR chest 2V DATE OF EXAM: 02/18/2018 COMPARISON: NONE HISTORY: Congestive heart failure TECHNIQUE: Frontal and lateral views of the chest are obtained. FINDINGS: There is no focal air space opacity, pleural effusion, or pneumothorax seen. The cardiac silhouette size is stable. Interstitium is prominent. Pulmonary artery is dilated, correlate for p ulmonary artery hypertension. There are overlying cardiac leads. The osseous structures are intact. IMPRESSION: There may be some interstitial edema, additional findings above.
--- NOTE | 2018-02-18 15:33 | PN ---
PROGRESS NOTE Mrs. Funk is on Lasix drip. She has pulmonary embolism, diastolic heart failure, significant pulmonary hypertension, chronic lower extremity edema with pigmentation. I am recommending that we continue the diuresis. I will add 20 mEq of potassium daily after supplementing 2 doses today. Her weight has come down modestly and she will need placement probably. Vital signs are stable. JVD is evident. S1-S2 heard normally but distantly lungs are clear. Lower extremity edema is significant, but there is modest improvement. Continue aggressive diuresis with Lasix drip and potassium supplements. Check a BMP in the morning. Prognosis remains guarded. MMODL / IJN: [id number] /
[2018-02-18] MEDS: guaiFENesin-Coden 100-10MG/5ML 10 ML CUP PO PRN (15:34)
[2018-02-18] MEDS: ACETAMINOPHEN TAB 325 MG TAB PO PRN (15:34)
[2018-02-18] MEDS: ALBUTEROL NEBULIZED 2.5 MG/3 ML INHALATION SCH (19:37)
[2018-02-19 06:46] LABS: Basophils % (A) 0 %; Eosinophils # (A) 0.3 k/uL (0-0.7); Eosinophils % (A) 3 %; HCT 46.1 % (34.0-46.0); HGB 14.2 gm/dL (11.4-16.0); Hypochromasia Moderate; Lymphocytes # (A) 0.9 k/uL (1.0-4.8); Lymphocytes % (A) 10 %; MCH 28.5 pg (25.0-35.0); MCHC 30.7 g/dL (31.0-37.0); MCV 92.9 fL (80.0-100.0); Mean Platelet Volume 7.9; Monocytes # (A) 0.6 k/uL (0-1.0); Monocytes % (A) 7 %; Neutrophils # (A) 6.6 k/uL (1.3-7.7); Neutrophils % (A) 77 %; Platelet Count 180 k/uL (150-450); RBC 4.96 m/uL (3.80-5.40); WBC 8.6 k/uL (3.8-10.6)
[2018-02-19 07:08] LABS: Albumin 3.1 g/dL (3.5-5.0); Calcium 8.5 mg/dL (8.4-10.2); Potassium 3.4 mmol/L (3.5-5.1); Total Bilirubin 0.9 mg/dL (0.2-1.3); Total Protein 6.1 g/dL (6.3-8.2)
[2018-02-19] MEDS: ALBUTEROL NEBULIZED 2.5 MG/3 ML INHALATION SCH ×3 (07:51→20:17)
[2018-02-19] MEDS: METOPROLOL SUCCINATE (ER) 25 MG TAB.ER.24H PO SCH (07:57)
[2018-02-19] MEDS: LOSARTAN 25 MG TAB PO SCH (07:57)
[2018-02-19] MEDS: METOLAZONE 5 MG TAB PO SCH (07:57)
[2018-02-19] MEDS: APIXABAN 5 MG TAB PO SCH ×2 (07:57→20:42)
[2018-02-19] MEDS: POTASSIUM CHLORIDE ER 20 MEQ TAB.ER PO SCH ×3 (07:58→11:57)
[2018-02-19] MEDS ORDERED: Potassium Replacement Protocol 1 EACH MISC MISCELLANE PRN (10:13)
[2018-02-19] MEDS: SPIRONOLACTONE 25 MG TAB PO SCH (11:57)
[2018-02-19] MEDS: FUROSEMIDE 250 MG in SODIUM CHLORIDE 0.9% 225 ML IVP SCH ×2 (11:58→19:48)
--- NOTE | 2018-02-19 12:08 | P.PN ---
Subjective Progress Note Date: 02/19/18 Principal diagnosis: Acute exacerbation of diastolic congestive heart failure. A 67-year-old female patient, morbidly obese with chronic lower extremity edema and bronchial asthma. Patient has chronic difficulties mobility and gait and she also admits to chronic lower extremity edema. Her lower extremity edema has got worse over the past 6 months to the point where she is currently weeping from the skin surface and this has affected her ability to move and walk. She has some limited cough and congestion. No chest pain. No pleurisy. No hemoptysis. No chest pain. She presented with some borderline elevation of the proBNP level at 2890 in addition to troponin leak levels being at 0.1 times for respectively. The white cell count is not elevated. Hemoglobin is at 14.5. Echo of the heart showed an ejection fraction of 55-60% along with right ventricular enlargement and right-sided pressure of 62 mmHg in addition to dilation of the IVC with poor inspiratory collapse consistent with increased filling pressure in the right atrial pressure of around 20 mmHg. No evidence of any pericardial effusion. There is evidence of moderate concentric left ventricular hypertrophy consistent with hypertensive heart disease. VQ scan was of indeterminate probability. CT angios the chest shows some limited groundglass changes bilaterally and addition to evidence of questionable filling defect in the lower lobe pulmonary artery branches bilaterally, involving the tertiary already artery branches in addition to a filling defect within the second branch of the right upper lobe pulmonary artery. Patient was started on IV heparin. The patient was subsequently switched Eliquis. The patient was also diuresed with Lasix and currently symptomatic grams of IV Lasix on an hourly basis and addition to Zaroxolyn 5 mg by mouth daily. She is also on Aldactone. Clinically feeling better. Less short of breath. No altered mentation. No history of obstructive sleep apnea although this is a concern as the patient is a component of chronic metabolic alkalosis and the blood work which raises the concern for chronic hypoxic and hypercapnic the story failure and obesity hypoventilation syndrome. The patient is seen again today 02/19/2018 in follow-up in the selective care unit. She is awake and alert in no acute distress. She is breathing easier today as compared to yesterday. Maintaining good O2 saturations in the 90s on room air. She continues to diurese well. She remains on Lasix at 10 mg per hour. Her weight is down from 157 kg to 152 kg today. She has been transitioned to oral anticoagulants in the form of Eliquis. Venous Doppler was inconclusive due to the inability to see blood vessel secondary the patient's body habitus and very tender Lasix. Unable to compress. Objective - Vital Signs Vital signs: Vital Signs Temp 97.6 F 02/19/18 08:00 Pulse 66 02/19/18 08:02 Resp 17 02/19/18 08:00 BP 98/48 02/19/18 08:00 Pulse Ox 96 02/19/18 08:00 Intake & Output 02/18/18 02/19/18 02/19/18 18:59 06:59 18:59 Intake Total 418 120 Output Total 525 400 Balance 418 -525 -280 Weight 152.4 kg Intake: Oral 418 120 Output: Urine 525 400 Other: Voiding Method Toilet Bedside Commode # Voids 1 4 # Bowel Movements 4 - Exam Gen. appearance the patient is morbidly obese, comfortable in no acute distress , BMI 55.9 Head exam was generally normal. There was no scleral icterus or corneal arcus. Mucous membranes were moist. Neck is short and supple and there is significant crowding of posterior pharynx with a Mallampati class IV.Neck was supple and without jugular venous distension , thyromegaly, or carotid bruits. Carotids were easily palpable bilaterally. There was no adenopathy. Lungs sounds are diminished in lung bases bilaterally otherwise clear. There is no wheezes or rhonchi or any crackles. Heart sounds are showing accentuation of the second heart sound. No right ventricular heave or thrill. No significant murmurs and the patient has a regular S1 and S2 consistent with sinus rhythm. Abdomen is morbidly obese and orders cannot be accurately palpated. There is no direct tenderness rebound tensile guarding. Organs cannot be accurately assessed. No ascites. Extremities show extensive edema in lower oximetry is bilaterally +3 pitting in addition to weeping of fluid from the skin surface and superficial skin ulceration without evidence of any cellulitis. Pulses are diminished at the present. There is no cyanosis or clubbing. Neurologically the patient is awake and alert and there is no focal neurological deficit. Skin that is some superficial wounds in lower extremity is bilaterally with the fluid is seeping off due to extensive edema lower extremities. No cellulitis. No deep wounds. - Labs CBC & Chem 7: 02/19/18 05:57 02/19/18 05:57 Labs: Abnormal Lab Results - Last 24 Hours (Table) 02/19/18 02/19/18 Range/Units 05:57 05:57 Hct 46.1 H (34.0-46.0) % MCHC 30.7 L (31.0-37.0) g/dL Lymphocytes # 0.9 L (1.0-4.8) k/uL Potassium 3.4 L (3.5-5.1) mmol/L Carbon Dioxide 34 H (22-30) mmol/L BUN 43 H (7-17) mg/dL Total Protein 6.1 L (6.3-8.2) g/dL Albumin 3.1 L (3.5-5.0) g/dL Assessment and Plan Assessment: Assessment 1 morbid obesity/obesity hypoventilation syndrome with suspect obstructive sleep apnea. The patient has obvious features of pickwickian syndrome as she has a BMI of 57.7, chronic hypoxic and hypercapnic respiratory failure with secondary metabolic alkalosis, moderate severe pulmonary hypertension related to chronic hypoxemic respiratory failure and evidence of right-sided heart failure 2 extensive lower extremity, +3 pitting secondary to above 3 pulmonary embolism, suspicious yet not definite. Patient has been subjected to anticoagulation to which I agree specially with her morbid obesity and sedentary lifestyle and the patient remains with an increased risk of having VTE in the future. Doppler of the lower extremities inconclusive secondary to body habitus and painful lower extremities and unable to compress or imaging. 4 chronic bronchial asthma currently inactive in stable 5 osteoarthritis 6 hypertensive heart disease with concentric left ventricular hypertrophy Plan The patient was seen and evaluated by Dr. Fragoso. She is improved today as compared to yesterday. Her weight is down. Peripheral edema improving. Maintaining good O2 saturations in the 90s on room air. Continue with diuretics. She remains on a Lasix drip along with Zaroxolyn and Aldactone. She has been initiated on Eliquis. We will continue to follow make further recommendations based on her clinical status. I, the cosigning physician, performed a history & physical examination of the patient. Lungs sounds with crackles in the posterior bases. Maintaining good O2 saturations in the 90s on room air. I discussed the assessment and plan of care with my nurse practitioner, Fide Blood. I attest to the above note as dictated by her.
--- NOTE | 2018-02-19 14:01 | P.PN ---
Subjective Patient was admitted due to extensive bilateral pedal edema from moderate severe pulmonary hypertension, cor pulmonale. Patient is receiving Lasix 10 mg/ h IV drip, pulmonology and cardiology are following the patient. Patient is morbidly obese with extensive bilateral pedal edema chronic venous stasis and chronic venous stasis dermatosis. Constitutional: Denied any fatigue denied any fever. Cardio vascular: denied any chest pain, palpitations Gastrointestinal denied any nausea vomiting Pulmonary: Shortness of breath significantly improved Neurologic denied any new focal deficits Objective - Vital Signs Vital signs: Vital Signs Temp 97.6 F 02/19/18 08:00 Pulse 70 02/19/18 12:00 Resp 18 02/19/18 12:00 BP 110/66 02/19/18 12:00 Pulse Ox 94 L 02/19/18 12:00 Intake & Output 02/18/18 02/19/18 02/19/18 18:59 06:59 18:59 Intake Total 668 120 Output Total 525 400 Balance 668 -525 -280 Weight 152.4 kg Intake: Intake, IV Titration 250 Amount Furosemide 250 mg In 250 Sodium Chloride 0.9% 225 ml @ 10 MG/HR 10 mls/hr IVP .Q24H [facility] Rx#: [id number] Oral 418 120 Output: Urine 525 400 Other: Voiding Method Toilet Bedside Commode # Voids 1 4 # Bowel Movements 4 - Exam PHYSICAL EXAMINATION: GENERAL: The patient is alert and oriented x3, not in any acute distress. Morbidly obese HEENT: Pupils are round and equally reacting to light. EOMI. No scleral icterus. No conjunctival pallor. Normocephalic, atraumatic. No pharyngeal erythema. No thyromegaly. CARDIOVASCULAR: S1 and S2 present. No murmurs, rubs, or gallops. PULMONARY: Chest is clear to auscultation, decreased air entry into bilateral lung meredith ABDOMEN: Soft, nontender, nondistended, normoactive bowel sounds. No palpable organomegaly. MUSCULOSKELETAL: No joint swelling or deformity. EXTREMITIES: Extensive pedal edema chronic venous stasis dermatosis bilateral lower extremities with intertrigo NEUROLOGICAL: Gross neurological examination did not reveal any focal deficits. SKIN: No rashes. - Labs CBC & Chem 7: 02/19/18 05:57 02/19/18 05:57 Labs: Abnormal Lab Results - Last 24 Hours (Table) 02/19/18 02/19/18 Range/Units 05:57 05:57 Hct 46.1 H (34.0-46.0) % MCHC 30.7 L (31.0-37.0) g/dL Lymphocytes # 0.9 L (1.0-4.8) k/uL Potassium 3.4 L (3.5-5.1) mmol/L Carbon Dioxide 34 H (22-30) mmol/L BUN 43 H (7-17) mg/dL Total Protein 6.1 L (6.3-8.2) g/dL Albumin 3.1 L (3.5-5.0) g/dL Assessment and Plan Plan: -Volume overload: Secondary to right-sided heart failure, cor pulmonale, IV Lasix as mentioned above. -Morbid obesity obesity hypoventilation syndrome, obstructive sleep apnea, restrictive lung disease leading to pulmonary hypertension-pickwickian syndrome chronic respiratory failure. -Suspicious pulmonary embolism: Please refer to pulmonology dictation for further details, patient is on anticoagulation -Chronic bronchial asthma not in acute exacerbation. -Severe osteoarthritis -Hypertensive heart disease with a concentrate left ventricular hypertrophy -Moderate to severe pulmonary hypertension
[2018-02-19] MEDS: ACETAMINOPHEN TAB 325 MG TAB PO PRN (16:39)
--- NOTE | 2018-02-19 21:48 | PN ---
PROGRESS NOTE This is a lady with morbid obesity, significant lower extremity edema. I placed her on Lasix drip and she has shown significant improvement. There is significant weight reduction. Edema has improved, but she still has significant edema with chronic changes in lower extremities. Denies chest pain. Shortness of breath has improved. Vitals are stable. JVD is evident. S1, S2 heard normally, but distantly. Lungs reveal diminished air entry. Abdomen is soft. Lower extremities reveal significant edema with pigmentation chronic changes. There is improvement overall. We will continue the same medications, including Lasix drip, and check electrolytes tomorrow. Prognosis remains guarded. MMODL / IJN: [id number] /
[2018-02-20 06:37] LABS: Basophils % (A) 0 %; Eosinophils # (A) 0.5 k/uL (0-0.7); Eosinophils % (A) 5 %; HCT 44.7 % (34.0-46.0); HGB 14.4 gm/dL (11.4-16.0); Hypochromasia Slight; Lymphocytes # (A) 1.2 k/uL (1.0-4.8); Lymphocytes % (A) 12 %; MCH 29.3 pg (25.0-35.0); MCHC 32.2 g/dL (31.0-37.0); Mean Platelet Volume 7.2; Monocytes # (A) 0.7 k/uL (0-1.0); Monocytes % (A) 7 %; Neutrophils # (A) 6.8 k/uL (1.3-7.7); Neutrophils % (A) 72 %; Platelet Count 202 k/uL (150-450); RBC 4.91 m/uL (3.80-5.40); RDW 15.1 % (11.5-15.5); WBC 9.4 k/uL (3.8-10.6)
[2018-02-20 06:49] LABS: Calcium 8.4 mg/dL (8.4-10.2)
[2018-02-20] MEDS: ALBUTEROL NEBULIZED 2.5 MG/3 ML INHALATION SCH ×3 (07:49→21:09)
[2018-02-20] MEDS: METOPROLOL SUCCINATE (ER) 25 MG TAB.ER.24H PO SCH (07:55)
[2018-02-20] MEDS: METOLAZONE 5 MG TAB PO SCH (07:55)
[2018-02-20] MEDS: LOSARTAN 25 MG TAB PO SCH (07:55)
[2018-02-20] MEDS: SPIRONOLACTONE 25 MG TAB PO SCH (07:55)
[2018-02-20] MEDS: POTASSIUM CHLORIDE ER 20 MEQ TAB.ER PO SCH (07:55)
[2018-02-20] MEDS: APIXABAN 5 MG TAB PO SCH ×2 (07:55→20:51)
[2018-02-20] MEDS: FUROSEMIDE 10 MG/ML 10 ML VIAL IV SCH ×2 (09:15→20:51)
--- NOTE | 2018-02-20 11:18 | P.PN ---
Subjective Progress Note Date: 02/20/18 A 67-year-old female patient, morbidly obese with chronic lower extremity edema and bronchial asthma. Patient has chronic difficulties mobility and gait and she also admits to chronic lower extremity edema. Her lower extremity edema has got worse over the past 6 months to the point where she is currently weeping from the skin surface and this has affected her ability to move and walk. She has some limited cough and congestion. No chest pain. No pleurisy. No hemoptysis. No chest pain. She presented with some borderline elevation of the proBNP level at 2890 in addition to troponin leak levels being at 0.1 times for respectively. The white cell count is not elevated. Hemoglobin is at 14.5. Echo of the heart showed an ejection fraction of 55-60% along with right ventricular enlargement and right-sided pressure of 62 mmHg in addition to dilation of the IVC with poor inspiratory collapse consistent with increased filling pressure in the right atrial pressure of around 20 mmHg. No evidence of any pericardial effusion. There is evidence of moderate concentric left ventricular hypertrophy consistent with hypertensive heart disease. VQ scan was of indeterminate probability. CT angios the chest shows some limited groundglass changes bilaterally and addition to evidence of questionable filling defect in the lower lobe pulmonary artery branches bilaterally, involving the tertiary already artery branches in addition to a filling defect within the second branch of the right upper lobe pulmonary artery. Patient was started on IV heparin. The patient was subsequently switched Eliquis. The patient was also diuresed with Lasix and currently symptomatic grams of IV Lasix on an hourly basis and addition to Zaroxolyn 5 mg by mouth daily. She is also on Aldactone. Clinically feeling better. Less short of breath. No altered mentation. No history of obstructive sleep apnea although this is a concern as the patient is a component of chronic metabolic alkalosis and the blood work which raises the concern for chronic hypoxic and hypercapnic the story failure and obesity hypoventilation syndrome. The patient is seen again today 02/19/2018 in follow-up in the selective care unit. She is awake and alert in no acute distress. She is breathing easier today as compared to yesterday. Maintaining good O2 saturations in the 90s on room air. She continues to diurese well. She remains on Lasix at 10 mg per hour. Her weight is down from 157 kg to 152 kg today. She has been transitioned to oral anticoagulants in the form of Eliquis. Venous Doppler was inconclusive due to the inability to see blood vessel secondary the patient's body habitus and very tender Lasix. Unable to compress. On today's evaluation of 02/20/2018, the patient has no specific complaints for lower extremities remain quite swollen and edematous and the skin has broken and the patient has superficial losing of fluid from the skin surface. Patient was being diuresed with IV Lasix. She is -1.8 L negative over the past 24 hours. She has a BUN of 42 and creatinine of 1.9 and there is no significant change in her renal function along with diuresis. Patient is on Zaroxolyn 5 mg by mouth daily and Lasix 80 mg IV every 12 hours. She is also on Aldactone. She is also on long-term and to coagulation with Eliquis. She is resting comfortably in her recliner. No fever. No chills. No cellulitis and she has changes related to chronic venous stasis and lower extremities bilaterally. Her body weight continues to drop and is currently down to 152 kg. Objective - Vital Signs Vital signs: Vital Signs Temp 97.1 F L 02/20/18 08:00 Pulse 64 02/20/18 08:04 Resp 18 02/20/18 08:00 BP 98/60 02/20/18 08:00 Pulse Ox 99 02/20/18 08:00 Intake & Output 02/19/18 02/20/18 02/20/18 18:59 06:59 18:59 Intake Total 670 78.333 360 Output Total 1400 1200 Balance -730 -1121.667 360 Weight 152 kg Intake: IV 70 lasix 70 Intake, IV Titration 78.333 Amount Furosemide 250 mg In 78.333 Sodium Chloride 0.9% 225 ml @ 10 MG/HR 10 mls/hr IVP .Q24H [facility] Rx#: [id number] Oral 600 360 Output: Urine 1400 1200 Other: Voiding Method Toilet Toilet - Exam Gen. appearance the patient is morbidly obese, comfortable in no acute distress , BMI 55.8 Head exam was generally normal. There was no scleral icterus or corneal arcus. Mucous membranes were moist. Neck is short and supple and there is significant crowding of posterior pharynx with a Mallampati class IV.Neck was supple and without jugular venous distension , thyromegaly, or carotid bruits. Carotids were easily palpable bilaterally. There was no adenopathy. Lungs sounds are diminished in lung bases bilaterally otherwise clear. There is no wheezes or rhonchi or any crackles. Heart sounds are showing accentuation of the second heart sound. No right ventricular heave or thrill. No significant murmurs and the patient has a regular S1 and S2 consistent with sinus rhythm. Abdomen is morbidly obese and orders cannot be accurately palpated. There is no direct tenderness rebound tensile guarding. Organs cannot be accurately assessed. No ascites. Extremities show extensive edema in lower oximetry is bilaterally +3 pitting in addition to weeping of fluid from the skin surface and superficial skin ulceration without evidence of any cellulitis. Pulses are diminished at the present. There is no cyanosis or clubbing. Neurologically the patient is awake and alert and there is no focal neurological deficit. Skin that is some superficial wounds in lower extremity is bilaterally with the fluid is seeping off due to extensive edema lower extremities. No cellulitis. No deep wounds. - Labs CBC & Chem 7: 02/20/18 06:02 02/20/18 06:02 Labs: Abnormal Lab Results - Last 24 Hours (Table) 02/20/18 Range/Units 06:02 Chloride 97 L (98-107) mmol/L Carbon Dioxide 33 H (22-30) mmol/L BUN 42 H (7-17) mg/dL Creatinine 1.10 H (0.52-1.04) mg/dL Assessment and Plan Plan: Assessment 1 morbid obesity/obesity hypoventilation syndrome with suspect obstructive sleep apnea. The patient has obvious features of pickwickian syndrome as she has a BMI of 57.7, chronic hypoxic and hypercapnic respiratory failure with secondary metabolic alkalosis, moderate severe pulmonary potential related to chronic hypoxemic respiratory failure and evidence of right-sided heart failure 2 extensive lower extremity, +3 pitting secondary to above 3 pulmonary embolism, suspicious yet not definite. Patient has been subjected to anticoagulation to which I agree specially with her morbid obesity and sedentary lifestyle and the patient remains with an increased risk of having VTE in the future. Ongoing also suggest to obtain a Doppler of the lower extremities to rule out any DVT specially with extensive edema in the legs bilaterally 4 chronic bronchial asthma currently inactive in stable 5 osteoarthritis 6 hypertensive heart disease with concentric left ventricular hypertrophy Plan Continue IV Lasix. Monitor urine output. Monitor renal function. Monitor electrolytes. Monitor body weight. Improving get the recovery is slow and the patient continues to have extensive edema lower extremity is bilaterally. Still and fluid overload. We'll continue to follow. Her weight has dropped down to 152 kg. Continue antibiotic ventilation with Eliquis. Doppler of the lower extremity was limited, and nondiagnostic due to the extensive lower extremity edema . We'll subject this patient to long-term and to coagulation with Eliquis. We'll continue to follow.
[2018-02-20] MEDS: ACETAMINOPHEN TAB 325 MG TAB PO PRN (12:16)
--- NOTE | 2018-02-20 13:18 | P.PN ---
Subjective Patient was admitted due to extensive bilateral pedal edema from moderate severe pulmonary hypertension, cor pulmonale. Patient is receiving Lasix 10 mg/ h IV drip, pulmonology and cardiology are following the patient. Patient is morbidly obese with extensive bilateral pedal edema chronic venous stasis and chronic venous stasis dermatosis. 02/20/2018 No overnight events no significant change compared to yesterday patient's IV Lasix drip was changed to IV Lasix 80 twice a day minimally worsening creatinine 1.1 on admission it was 0.8 Constitutional: Denied any fatigue denied any fever. Cardio vascular: denied any chest pain, palpitations Gastrointestinal denied any nausea vomiting Pulmonary: Shortness of breath significantly improved Neurologic denied any new focal deficits Objective - Vital Signs Vital signs: Vital Signs Temp 97.4 F L 02/20/18 12:00 Pulse 68 02/20/18 12:00 Resp 18 02/20/18 12:00 BP 115/75 02/20/18 12:00 Pulse Ox 95 02/20/18 12:00 Intake & Output 02/19/18 02/20/18 02/20/18 18:59 06:59 18:59 Intake Total 670 78.333 360 Output Total 1400 1200 Balance -730 -1121.667 360 Weight 152 kg Intake: IV 70 lasix 70 Intake, IV Titration 78.333 Amount Furosemide 250 mg In 78.333 Sodium Chloride 0.9% 225 ml @ 10 MG/HR 10 mls/hr IVP .Q24H [facility] Rx#: [id number] Oral 600 360 Output: Urine 1400 1200 Other: Voiding Method Toilet Toilet - Exam PHYSICAL EXAMINATION: GENERAL: The patient is alert and oriented x3, not in any acute distress. Morbidly obese HEENT: Pupils are round and equally reacting to light. EOMI. No scleral icterus. No conjunctival pallor. Normocephalic, atraumatic. No pharyngeal erythema. No thyromegaly. CARDIOVASCULAR: S1 and S2 present. No murmurs, rubs, or gallops. PULMONARY: Chest is clear to auscultation, decreased air entry into bilateral lung meredith ABDOMEN: Soft, nontender, nondistended, normoactive bowel sounds. No palpable organomegaly. MUSCULOSKELETAL: No joint swelling or deformity. EXTREMITIES: Extensive pedal edema chronic venous stasis dermatosis bilateral lower extremities with intertrigo NEUROLOGICAL: Gross neurological examination did not reveal any focal deficits. SKIN: No rashes. - Labs CBC & Chem 7: 02/20/18 06:02 02/20/18 06:02 Labs: Abnormal Lab Results - Last 24 Hours (Table) 02/20/18 Range/Units 06:02 Chloride 97 L (98-107) mmol/L Carbon Dioxide 33 H (22-30) mmol/L BUN 42 H (7-17) mg/dL Creatinine 1.10 H (0.52-1.04) mg/dL Assessment and Plan Plan: -Volume overload: Secondary to right-sided heart failure, cor pulmonale, IV Lasix as mentioned above. -Morbid obesity obesity hypoventilation syndrome, obstructive sleep apnea, restrictive lung disease leading to pulmonary hypertension-pickwickian syndrome chronic respiratory failure. -Suspicious pulmonary embolism: Please refer to pulmonology dictation for further details, patient is on anticoagulation -Chronic bronchial asthma not in acute exacerbation. -Severe osteoarthritis -Hypertensive heart disease with a concentrate left ventricular hypertrophy -Moderate to severe pulmonary hypertension
--- NOTE | 2018-02-20 16:31 | PN ---
PROGRESS NOTE Mrs. Funk continues to lose weight. She is feeling much better but edema of lower extremities is quite massive and there is a lot of pigmentation and chronic changes. Vital signs are stable. JVD is 1-2 cm. No carotid bruit. S1-S2 heard normally but distantly lungs are clear. Abdomen is soft. Lower extremities reveal significant edema with pigmentation chronic changes, but there is improvement. Plan is to continue Lasix but switch it to 80 mg q.12 hours. Continue following electrolytes and see how she does. MMODL / IJN: [id number] /
[2018-02-21 06:19] LABS: Basophils # (A) 0.1 k/uL (0-0.2); Basophils % (A) 1 %; Eosinophils # (A) 0.6 k/uL (0-0.7); Eosinophils % (A) 6 %; HCT 44.8 % (34.0-46.0); HGB 14.7 gm/dL (11.4-16.0); Hypochromasia Slight; Lymphocytes # (A) 1.2 k/uL (1.0-4.8); Lymphocytes % (A) 12 %; MCHC 32.7 g/dL (31.0-37.0); MCV 91.7 fL (80.0-100.0); Mean Platelet Volume 7.2; Monocytes # (A) 0.6 k/uL (0-1.0); Monocytes % (A) 6 %; Neutrophils # (A) 7.3 k/uL (1.3-7.7); Neutrophils % (A) 73 %; Platelet Count 210 k/uL (150-450); RBC 4.88 m/uL (3.80-5.40); RDW 15.5 % (11.5-15.5); WBC 9.9 k/uL (3.8-10.6)
[2018-02-21 06:26] LABS: Calcium 8.6 mg/dL (8.4-10.2); Potassium 3.8 mmol/L (3.5-5.1)
[2018-02-21] MEDS: POTASSIUM CHLORIDE ER 20 MEQ TAB.ER PO SCH (07:42)
[2018-02-21] MEDS: METOPROLOL SUCCINATE (ER) 25 MG TAB.ER.24H PO SCH (07:42)
[2018-02-21] MEDS: SPIRONOLACTONE 25 MG TAB PO SCH (07:42)
[2018-02-21] MEDS: APIXABAN 5 MG TAB PO SCH ×2 (07:43→21:13)
[2018-02-21] MEDS: LOSARTAN 25 MG TAB PO SCH (07:43)
[2018-02-21] MEDS: METOLAZONE 5 MG TAB PO SCH (07:43)
[2018-02-21] MEDS: FUROSEMIDE 10 MG/ML 10 ML VIAL IV SCH ×2 (07:43→21:13)
--- NOTE | 2018-02-21 07:48 | P.PN ---
Subjective Principal diagnosis: . Continuing care. Worsening cough. This 67-year-old white female essentially admitted for cor pulmonale with pulmonary embolus and atrial fibrillation area the patient feels much better but has still significant dyspnea on exertion at times with fatigue. He suspect this is related to her morbid obesity. Some loose stool is noted. Objective - Vital Signs Vital signs: Vital Signs Temp 98.1 F 02/21/18 04:00 Pulse 69 02/21/18 04:00 Resp 18 02/21/18 04:00 BP 114/56 02/21/18 04:00 Pulse Ox 92 L 02/21/18 04:00 Intake & Output 02/20/18 02/21/18 02/21/18 18:59 06:59 18:59 Intake Total 980 Output Total 200 700 Balance 780 -700 Weight 149.5 kg Intake: IV 20 lasix 20 Oral 960 Output: Urine 200 700 Other: Voiding Method Toilet Toilet # Voids 1 1 # Bowel Movements 1 1 - Constitutional General appearance: Present: morbidly obese - EENT Eyes: Absent: abnormal pupil - Neck Neck: Absent: lymphadenopathy - Respiratory Respiratory: bilateral: CTA - Cardiovascular Rhythm: irregularly irregular Heart sounds: normal: S1, S2 Abnormal Heart Sounds: Present: S3 Gallop - Gastrointestinal General gastrointestinal: Present: soft. Absent: tenderness - Musculoskeletal Musculoskeletal: Present: generalized weakness - Labs CBC & Chem 7: 02/21/18 06:05 02/21/18 06:05 Labs: Abnormal Lab Results - Last 24 Hours (Table) 02/21/18 Range/Units 06:05 Chloride 96 L (98-107) mmol/L Carbon Dioxide 34 H (22-30) mmol/L BUN 42 H (7-17) mg/dL Creatinine 1.10 H (0.52-1.04) mg/dL Assessment and Plan (1) Atrial fibrillation Current Visit: Yes Status: Acute Code(s): I48.91 - UNSPECIFIED ATRIAL FIBRILLATION SNOMED Code(s): 81203822 (2) Congestive heart failure Current Visit: Yes Status: Acute Code(s): I50.9 - HEART FAILURE, UNSPECIFIED SNOMED Code(s): 09906973 (3) Pulmonary embolus Current Visit: Yes Status: Acute Code(s): I26.99 - OTHER PULMONARY EMBOLISM WITHOUT ACUTE COR PULMONALE SNOMED Code(s): 67170787 Plan: Continue IV Lasix for today. Hopefully wean off of this in the next day or so. The patient has improved significantly. Check CMP in a.m. Anticipate discharge in next 24-48 hours or when cleared by cardiology. Transfer to general medical floor with telemetry. Increase ambulation otherwise. Time with Patient: Less than 30
[2018-02-21] MEDS: ALBUTEROL NEBULIZED 2.5 MG/3 ML INHALATION SCH ×3 (08:02→20:44)
[2018-02-21] MEDS: LOPERAMIDE 2 MG CAP PO PRN ×2 (09:14→22:26)
--- NOTE | 2018-02-21 12:48 | P.PN ---
Subjective Mrs. Funk is a pleasant 67-year-old female past medical history significant for asthma, osteoarthritis and morbid obesity. Upon admission to the hospital she was found to be in atrial fibrillation with controlled ventricular response. She was started on toprl for rate control and Eliquis for anticoagulation. She has been maintained on IV lasix secondary to significant lower extremity swelling. Her weight has consistently gone down since admission from 161.9 on admission to 149.5 today. Cr 1.1, sodium 141, potassium 3.8. Blood pressure 120/87 heart rate 79 afebrile and maintaining oxygen saturation on room air. She was up ambulating with physical therapy today. Objective - Vital Signs Vital signs: Vital Signs Temp 97.6 F 02/21/18 08:00 Pulse 72 02/21/18 08:17 Resp 18 02/21/18 08:00 BP 120/87 02/21/18 08:00 Pulse Ox 93 L 02/21/18 08:00 Intake & Output 02/20/18 02/21/18 02/21/18 18:59 06:59 18:59 Intake Total 980 Output Total 200 700 Balance 780 -700 Weight 149.5 kg Intake: IV 20 lasix 20 Oral 960 Output: Urine 200 700 Other: Voiding Method Toilet Toilet # Voids 1 1 1 # Bowel Movements 1 1 1 - Exam Blood pressure 120/80; heart rate 72 afebrile maintaining oxygen saturation on room air GENERAL: Well-appearing, well-nourished and in no acute distress. NECK: Supple without JVD or thyromegaly. LUNGS: Breath sounds clear to auscultation bilaterally. Respiration equal and unlabored. No wheezes, rales or rhonchi. HEART: Irregular rate and rhythm with systolic ejection murmurs, no rubs or gallops. S1 and S2 heard. EXTREMITIES: Normal range of motion, ongoing significant pitting b/l lower extremity edema with pigmentations changes and weeping. No clubbing or cyanosis. - Labs CBC & Chem 7: 02/21/18 06:05 02/21/18 06:05 Labs: Abnormal Lab Results - Last 24 Hours (Table) 02/21/18 Range/Units 06:05 Chloride 96 L (98-107) mmol/L Carbon Dioxide 34 H (22-30) mmol/L BUN 42 H (7-17) mg/dL Creatinine 1.10 H (0.52-1.04) mg/dL Assessment and Plan Assessment: ASSESSMENT 1. New onset paroxysmal atrial fibrillation with controlled ventricular response on snf anticoagulation with Eliquis 2. Pulmonary hypertension, RVSP 62.17 mmHg, moderate 3. Acute on chronic heart failure, preserved ejection fraction 4. Pulmonary embolism, 5. Hypertension 6. Morbid obesity PLAN Continue with IV diuresis. Follow renal function and electrolytes daily. Would benefit from outpatient sleep study. We will continue to follow and make recommendations based on clinical course. Nurse Practitioner note has been reviewed, I agree with a documented findings and plan of care. Patient was seen and examined.
--- NOTE | 2018-02-21 14:16 | P.PN ---
Subjective Progress Note Date: 02/21/18 Principal diagnosis: Morbid obesity/obesity hypoventilation syndrome, suspect obstructive sleep apnea A 67-year-old female patient, morbidly obese with chronic lower extremity edema and bronchial asthma. Patient has chronic difficulties mobility and gait and she also admits to chronic lower extremity edema. Her lower extremity edema has got worse over the past 6 months to the point where she is currently weeping from the skin surface and this has affected her ability to move and walk. She has some limited cough and congestion. No chest pain. No pleurisy. No hemoptysis. No chest pain. She presented with some borderline elevation of the proBNP level at 2890 in addition to troponin leak levels being at 0.1 times for respectively. The white cell count is not elevated. Hemoglobin is at 14.5. Echo of the heart showed an ejection fraction of 55-60% along with right ventricular enlargement and right-sided pressure of 62 mmHg in addition to dilation of the IVC with poor inspiratory collapse consistent with increased filling pressure in the right atrial pressure of around 20 mmHg. No evidence of any pericardial effusion. There is evidence of moderate concentric left ventricular hypertrophy consistent with hypertensive heart disease. VQ scan was of indeterminate probability. CT angios the chest shows some limited groundglass changes bilaterally and addition to evidence of questionable filling defect in the lower lobe pulmonary artery branches bilaterally, involving the tertiary already artery branches in addition to a filling defect within the second branch of the right upper lobe pulmonary artery. Patient was started on IV heparin. The patient was subsequently switched Eliquis. The patient was also diuresed with Lasix and currently symptomatic grams of IV Lasix on an hourly basis and addition to Zaroxolyn 5 mg by mouth daily. She is also on Aldactone. Clinically feeling better. Less short of breath. No altered mentation. No history of obstructive sleep apnea although this is a concern as the patient is a component of chronic metabolic alkalosis and the blood work which raises the concern for chronic hypoxic and hypercapnic the story failure and obesity hypoventilation syndrome. The patient is seen again today 02/19/2018 in follow-up in the selective care unit. She is awake and alert in no acute distress. She is breathing easier today as compared to yesterday. Maintaining good O2 saturations in the 90s on room air. She continues to diurese well. She remains on Lasix at 10 mg per hour. Her weight is down from 157 kg to 152 kg today. She has been transitioned to oral anticoagulants in the form of Eliquis. Venous Doppler was inconclusive due to the inability to see blood vessel secondary the patient's body habitus and very tender Lasix. Unable to compress. On today's evaluation of 02/20/2018, the patient has no specific complaints for lower extremities remain quite swollen and edematous and the skin has broken and the patient has superficial losing of fluid from the skin surface. Patient was being diuresed with IV Lasix. She is -1.8 L negative over the past 24 hours. She has a BUN of 42 and creatinine of 1.9 and there is no significant change in her renal function along with diuresis. Patient is on Zaroxolyn 5 mg by mouth daily and Lasix 80 mg IV every 12 hours. She is also on Aldactone. She is also on long-term and to coagulation with Eliquis. She is resting comfortably in her recliner. No fever. No chills. No cellulitis and she has changes related to chronic venous stasis and lower extremities bilaterally. Her body weight continues to drop and is currently down to 152 kg. On 02/21/2018 patient seen in follow-up. She states her breathing is easier today, she is diuresing, and her weight is down to 149.5 kg from 152 kg. She is maintaining negative fluid balance, she states the swelling in her legs is unchanged, but her breathing has improved. She is on room air, her pulse ox is 93%, she is afebrile. Today's labs were reviewed, the CBC is within normal limits, no leukocytosis, renal profile is stable, CO2 is persistently elevated at 34, chloride is 96, sodium is 141, potassium is 3.8. Patient has been ambulating with therapy, and tolerating it well. We will continue current plan of care, continue diuretics, dissipate discharge in the next 24 hours. Objective - Vital Signs Vital signs: Vital Signs Temp 97.6 F 02/21/18 08:00 Pulse 80 02/21/18 13:50 Resp 18 02/21/18 08:00 BP 120/87 02/21/18 08:00 Pulse Ox 93 L 02/21/18 08:00 Intake & Output 02/20/18 02/21/18 02/21/18 18:59 06:59 18:59 Intake Total 980 Output Total 200 700 Balance 780 -700 Weight 149.5 kg Intake: IV 20 lasix 20 Oral 960 Output: Urine 200 700 Other: Voiding Method Toilet Toilet # Voids 1 1 1 # Bowel Movements 1 1 1 - Exam Gen. appearance the patient is morbidly obese, comfortable in no acute distress , BMI 55.8 Head exam was generally normal. There was no scleral icterus or corneal arcus. Mucous membranes were moist. Neck is short and supple and there is significant crowding of posterior pharynx with a Mallampati class IV.Neck was supple and without jugular venous distension , thyromegaly, or carotid bruits. Carotids were easily palpable bilaterally. There was no adenopathy. Lungs sounds are diminished in lung bases bilaterally otherwise clear. There is no wheezes or rhonchi or any crackles. Heart sounds are showing accentuation of the second heart sound. No right ventricular heave or thrill. No significant murmurs and the patient has a regular S1 and S2 consistent with sinus rhythm. Abdomen is morbidly obese and orders cannot be accurately palpated. There is no direct tenderness rebound tensile guarding. Organs cannot be accurately assessed. No ascites. Extremities show extensive edema in lower oximetry is bilaterally +3 pitting in addition to weeping of fluid from the skin surface and superficial skin ulceration without evidence of any cellulitis. Pulses are diminished at the present. There is no cyanosis or clubbing. Neurologically the patient is awake and alert and there is no focal neurological deficit. Skin that is some superficial wounds in lower extremity is bilaterally with the fluid is seeping off due to extensive edema lower extremities. No cellulitis. No deep wounds. - Labs CBC & Chem 7: 02/21/18 06:05 02/21/18 06:05 Labs: Abnormal Lab Results - Last 24 Hours (Table) 02/21/18 Range/Units 06:05 Chloride 96 L (98-107) mmol/L Carbon Dioxide 34 H (22-30) mmol/L BUN 42 H (7-17) mg/dL Creatinine 1.10 H (0.52-1.04) mg/dL Assessment and Plan Plan: Assessment: 1 morbid obesity/obesity hypoventilation syndrome with suspect obstructive sleep apnea. The patient has obvious features of pickwickian syndrome as she has a BMI of 57.7, chronic hypoxic and hypercapnic respiratory failure with secondary metabolic alkalosis, moderate severe pulmonary potential related to chronic hypoxemic respiratory failure and evidence of right-sided heart failure 2 extensive lower extremity, +3 pitting secondary to above 3 pulmonary embolism, suspicious yet not definite. Patient has been subjected to anticoagulation to which I agree specially with her morbid obesity and sedentary lifestyle and the patient remains with an increased risk of having VTE in the future. Ongoing also suggest to obtain a Doppler of the lower extremities to rule out any DVT specially with extensive edema in the legs bilaterally 4 chronic bronchial asthma currently inactive in stable 5 osteoarthritis 6 hypertensive heart disease with concentric left ventricular hypertrophy Plan Patient is diuresing, maintaining negative fluid balance, continue IV diuretics and Zaroxolyn, accurate I&O's, monitor labs. The appearance of bilateral lower extremity edema is slightly improved, patient is maintaining stable oxygenation on room air, voiding ambulation, and T current plan of care. I performed a history & physical examination of the patient and discussed their management with my nurse practitioner, Elva Shafer. I reviewed the nurse practitioner's note and agree with the documented findings and plan of care. Lung sounds are clear. The findings and the impression was discussed with the patient. I attest to the documentation by the nurse practitioner. Time with Patient: Less than 30
[2018-02-21] MEDS: SILVER sulfADIAZINE Cream 400 GM 1 APPLIC APPLIC TOPICAL SCH (21:14)
[2018-02-21] MEDS: ACETAMINOPHEN TAB 325 MG TAB PO PRN (22:25)
[2018-02-22 07:27] LABS: Basophils # (A) 0.1 k/uL (0-0.2); Basophils % (A) 1 %; Eosinophils # (A) 0.4 k/uL (0-0.7); Eosinophils % (A) 5 %; HCT 44.2 % (34.0-46.0); HGB 14.1 gm/dL (11.4-16.0); Hypochromasia Slight; Lymphocytes # (A) 1.2 k/uL (1.0-4.8); Lymphocytes % (A) 14 %; MCH 29.1 pg (25.0-35.0); MCHC 31.9 g/dL (31.0-37.0); MCV 91.5 fL (80.0-100.0); Mean Platelet Volume 7.3; Monocytes # (A) 0.7 k/uL (0-1.0); Monocytes % (A) 8 %; Neutrophils # (A) 5.6 k/uL (1.3-7.7); Neutrophils % (A) 69 %; Platelet Count 230 k/uL (150-450); RBC 4.83 m/uL (3.80-5.40); RDW 15.4 % (11.5-15.5); WBC 8.1 k/uL (3.8-10.6)
[2018-02-22 07:52] LABS: Albumin 2.8 g/dL (3.5-5.0); Calcium 8.4 mg/dL (8.4-10.2); Potassium 3.5 mmol/L (3.5-5.1); Total Bilirubin 1.1 mg/dL (0.2-1.3); Total Protein 5.6 g/dL (6.3-8.2)
[2018-02-22] MEDS: APIXABAN 5 MG TAB PO SCH ×2 (08:11→21:07)
[2018-02-22] MEDS: FUROSEMIDE 10 MG/ML 10 ML VIAL IV SCH ×2 (08:12→21:07)
[2018-02-22] MEDS: METOLAZONE 5 MG TAB PO SCH (08:13)
[2018-02-22] MEDS: guaiFENesin-Coden 100-10MG/5ML 10 ML CUP PO PRN (08:13)
[2018-02-22] MEDS: METOPROLOL SUCCINATE (ER) 25 MG TAB.ER.24H PO SCH (08:13)
[2018-02-22] MEDS: LOSARTAN 25 MG TAB PO SCH (08:13)
[2018-02-22] MEDS: SILVER sulfADIAZINE Cream 400 GM 1 APPLIC APPLIC TOPICAL SCH (08:14)
[2018-02-22] MEDS: SPIRONOLACTONE 25 MG TAB PO SCH (08:14)
[2018-02-22] MEDS: POTASSIUM CHLORIDE ER 20 MEQ TAB.ER PO SCH ×5 (08:14→17:33)
[2018-02-22] MEDS: ALBUTEROL NEBULIZED 2.5 MG/3 ML INHALATION SCH ×3 (08:19→21:14)
--- NOTE | 2018-02-22 08:44 | P.PN ---
Subjective Mrs. Funk is a pleasant 67-year-old female past medical history significant for asthma, osteoarthritis and morbid obesity. Upon admission to the hospital she was found to be in atrial fibrillation with controlled ventricular response. She was started on toprl for rate control and Eliquis for anticoagulation. She has been maintained on IV lasix secondary to significant lower extremity swelling. Her weight has consistently gone down since admission from 161.9 on admission to 146.8 today. Cr 1.13, sodium 140, potassium 3.5. Blood pressure 121/77 heart rate 64 afebrile and maintaining oxygen saturation on room air. She continues to be in atrial fibrillation at the time of my exam. She denies chest pain, dizziness, shortness of breath, nausea, vomiting or diaphoresis. She continues with a dry cough. No significant change in edema presentation despite diuresis. Objective - Vital Signs Vital signs: Vital Signs Temp 97.7 F 02/22/18 07:14 Pulse 64 02/22/18 07:14 Resp 16 02/22/18 07:14 BP 121/77 02/22/18 07:14 Pulse Ox 96 02/22/18 07:14 Intake & Output 02/21/18 02/22/18 02/22/18 18:59 06:59 18:59 Intake Total 250 Output Total 3 Balance 247 Weight 146.828 kg Intake: Oral 250 Output: Stool 3 Other: Voiding Method Bedside Commode Bedside Commode # Voids 1 3 # Bowel Movements 1 2 - Exam GENERAL: Well-appearing, well-nourished and in no acute distress. Morbidly obese. NECK: Supple without JVD or thyromegaly. LUNGS: Breath sounds clear to auscultation bilaterally. Respiration equal and unlabored. No wheezes, rales or rhonchi. HEART: Irregular rate and rhythm with systolic ejection murmurs, no rubs or gallops. S1 and S2 heard. EXTREMITIES: Normal range of motion, ongoing significant pitting b/l lower extremity edema with pigmentation changes and weeping. No significant change in edema. No clubbing or cyanosis. - Labs CBC & Chem 7: 02/22/18 06:33 02/22/18 06:33 Labs: Abnormal Lab Results - Last 24 Hours (Table) 02/22/18 Range/Units 06:33 Chloride 94 L (98-107) mmol/L Carbon Dioxide 37 H (22-30) mmol/L BUN 38 H (7-17) mg/dL Creatinine 1.13 H (0.52-1.04) mg/dL Total Protein 5.6 L (6.3-8.2) g/dL Albumin 2.8 L (3.5-5.0) g/dL Assessment and Plan Assessment: ASSESSMENT 1. New onset paroxysmal atrial fibrillation with controlled ventricular response on long distance operator anticoagulation with Eliquis 2. Pulmonary hypertension, RVSP 62.17 mmHg, moderate 3. Acute on chronic heart failure, preserved ejection fraction 4. Pulmonary embolism, 5. Hypertension 6. Morbid obesity PLAN Continue with IV diuresis. Follow renal function and electrolytes daily. We will continue to follow and make recommendations based on clinical course. Possible discharge in the next 24 hours. Sleep study will be set up as an outpatient. Nurse Practitioner note has been reviewed, I agree with a documented findings and plan of care. Patient was seen and examined.
[2018-02-22] MEDS ORDERED: POTASSIUM CHLORIDE ER 20 MEQ TAB.ER PO SCH (10:00)
--- NOTE | 2018-02-22 11:31 | P.PN ---
Subjective Progress Note Date: 02/22/18 Principal diagnosis: Morbid obesity/obesity hypoventilation syndrome, suspect obstructive sleep apnea A 67-year-old female patient, morbidly obese with chronic lower extremity edema and bronchial asthma. Patient has chronic difficulties mobility and gait and she also admits to chronic lower extremity edema. Her lower extremity edema has got worse over the past 6 months to the point where she is currently weeping from the skin surface and this has affected her ability to move and walk. She has some limited cough and congestion. No chest pain. No pleurisy. No hemoptysis. No chest pain. She presented with some borderline elevation of the proBNP level at 2890 in addition to troponin leak levels being at 0.1 times for respectively. The white cell count is not elevated. Hemoglobin is at 14.5. Echo of the heart showed an ejection fraction of 55-60% along with right ventricular enlargement and right-sided pressure of 62 mmHg in addition to dilation of the IVC with poor inspiratory collapse consistent with increased filling pressure in the right atrial pressure of around 20 mmHg. No evidence of any pericardial effusion. There is evidence of moderate concentric left ventricular hypertrophy consistent with hypertensive heart disease. VQ scan was of indeterminate probability. CT angios the chest shows some limited groundglass changes bilaterally and addition to evidence of questionable filling defect in the lower lobe pulmonary artery branches bilaterally, involving the tertiary already artery branches in addition to a filling defect within the second branch of the right upper lobe pulmonary artery. Patient was started on IV heparin. The patient was subsequently switched Eliquis. The patient was also diuresed with Lasix and currently symptomatic grams of IV Lasix on an hourly basis and addition to Zaroxolyn 5 mg by mouth daily. She is also on Aldactone. Clinically feeling better. Less short of breath. No altered mentation. No history of obstructive sleep apnea although this is a concern as the patient is a component of chronic metabolic alkalosis and the blood work which raises the concern for chronic hypoxic and hypercapnic the story failure and obesity hypoventilation syndrome. The patient is seen again today 02/19/2018 in follow-up in the selective care unit. She is awake and alert in no acute distress. She is breathing easier today as compared to yesterday. Maintaining good O2 saturations in the 90s on room air. She continues to diurese well. She remains on Lasix at 10 mg per hour. Her weight is down from 157 kg to 152 kg today. She has been transitioned to oral anticoagulants in the form of Eliquis. Venous Doppler was inconclusive due to the inability to see blood vessel secondary the patient's body habitus and very tender Lasix. Unable to compress. On today's evaluation of 02/20/2018, the patient has no specific complaints for lower extremities remain quite swollen and edematous and the skin has broken and the patient has superficial losing of fluid from the skin surface. Patient was being diuresed with IV Lasix. She is -1.8 L negative over the past 24 hours. She has a BUN of 42 and creatinine of 1.9 and there is no significant change in her renal function along with diuresis. Patient is on Zaroxolyn 5 mg by mouth daily and Lasix 80 mg IV every 12 hours. She is also on Aldactone. She is also on long-term and to coagulation with Eliquis. She is resting comfortably in her recliner. No fever. No chills. No cellulitis and she has changes related to chronic venous stasis and lower extremities bilaterally. Her body weight continues to drop and is currently down to 152 kg. On 02/21/2018 patient seen in follow-up. She states her breathing is easier today, she is diuresing, and her weight is down to 149.5 kg from 152 kg. She is maintaining negative fluid balance, she states the swelling in her legs is unchanged, but her breathing has improved. She is on room air, her pulse ox is 93%, she is afebrile. Today's labs were reviewed, the CBC is within normal limits, no leukocytosis, renal profile is stable, CO2 is persistently elevated at 34, chloride is 96, sodium is 141, potassium is 3.8. Patient has been ambulating with therapy, and tolerating it well. We will continue current plan of care, continue diuretics, dissipate discharge in the next 24 hours. On 02/22/2018 patient seen in follow-up on medical surgical floor. Denies any dyspnea, she is currently on room air, in the room air pulse ox is 96%, she is afebrile, hemodynamically stable. Her weight is down to 146.8 kg from 149.5 kg in the last 24 hours, patient is maintaining negative fluid balance, however the appearance of lower extremity edema is still significant, and the patient will remain inpatient for continued diuresis. Otherwise she remains stable from the pulmonary standpoint, no acute issues overnight, and the patient will need outpatient follow-up for a sleep study. Objective - Vital Signs Vital signs: Vital Signs Temp 97.7 F 02/22/18 07:14 Pulse 72 02/22/18 08:30 Resp 16 02/22/18 07:14 BP 121/77 02/22/18 07:14 Pulse Ox 96 02/22/18 07:14 Intake & Output 02/21/18 02/22/18 02/22/18 18:59 06:59 18:59 Intake Total 250 Output Total 3 Balance 247 Weight 146.828 kg Intake: Oral 250 Output: Stool 3 Other: Voiding Method Bedside Commode Bedside Commode # Voids 1 3 # Bowel Movements 1 2 - Exam Gen. appearance the patient is morbidly obese, comfortable in no acute distress , BMI 55.8 Head exam was generally normal. There was no scleral icterus or corneal arcus. Mucous membranes were moist. Neck is short and supple and there is significant crowding of posterior pharynx with a Mallampati class IV.Neck was supple and without jugular venous distension , thyromegaly, or carotid bruits. Carotids were easily palpable bilaterally. There was no adenopathy. Lungs sounds are diminished in lung bases bilaterally otherwise clear. There is no wheezes or rhonchi or any crackles. Heart sounds are showing accentuation of the second heart sound. No right ventricular heave or thrill. No significant murmurs and the patient has a regular S1 and S2 consistent with sinus rhythm. Abdomen is morbidly obese and orders cannot be accurately palpated. There is no direct tenderness rebound tensile guarding. Organs cannot be accurately assessed. No ascites. Extremities show extensive edema in lower oximetry is bilaterally +3 pitting in addition to weeping of fluid from the skin surface and superficial skin ulceration without evidence of any cellulitis. Pulses are diminished at the present. There is no cyanosis or clubbing. Neurologically the patient is awake and alert and there is no focal neurological deficit. Skin that is some superficial wounds in lower extremity is bilaterally with the fluid is seeping off due to extensive edema lower extremities. No cellulitis. No deep wounds. - Labs CBC & Chem 7: 02/22/18 06:33 02/22/18 06:33 Labs: Abnormal Lab Results - Last 24 Hours (Table) 02/22/18 Range/Units 06:33 Chloride 94 L (98-107) mmol/L Carbon Dioxide 37 H (22-30) mmol/L BUN 38 H (7-17) mg/dL Creatinine 1.13 H (0.52-1.04) mg/dL Total Protein 5.6 L (6.3-8.2) g/dL Albumin 2.8 L (3.5-5.0) g/dL Assessment and Plan Plan: Assessment: 1 morbid obesity/obesity hypoventilation syndrome with suspect obstructive sleep apnea. The patient has obvious features of pickwickian syndrome as she has a BMI of 57.7, chronic hypoxic and hypercapnic respiratory failure with secondary metabolic alkalosis, moderate severe pulmonary potential related to chronic hypoxemic respiratory failure and evidence of right-sided heart failure 2 extensive lower extremity, +3 pitting secondary to above 3 pulmonary embolism, suspicious yet not definite. Patient has been subjected to anticoagulation to which I agree specially with her morbid obesity and sedentary lifestyle and the patient remains with an increased risk of having VTE in the future. Ongoing also suggest to obtain a Doppler of the lower extremities to rule out any DVT specially with extensive edema in the legs bilaterally 4 chronic bronchial asthma currently inactive in stable 5 osteoarthritis 6 hypertensive heart disease with concentric left ventricular hypertrophy Plan Patient remains stable from pulmonary standpoint, she continues to diurese, and her weight is down by a total of 13 kg since admission. She still has significant bilateral lower extremity edema, and will continue IV diuresis. Patient will need follow-up with Dr. Fragoso for a sleep study on an outpatient basis for a suspected obstructive sleep apnea. This was discussed with the patient, and the patient is in agreement. I performed a history & physical examination of the patient and discussed their management with my nurse practitioner, Elva Shafer. I reviewed the nurse practitioner's note and agree with the documented findings and plan of care. Lung sounds are clear. The findings and the impression was discussed with the patient. I attest to the documentation by the nurse practitioner. Time with Patient: Less than 30
[2018-02-23] MEDS ORDERED: POTASSIUM CHLORIDE ER 20 MEQ TAB.ER PO STA (02:38)
[2018-02-23 05:49] VITALS: RESP 16
[2018-02-23] MEDS: ALBUTEROL NEBULIZED 2.5 MG/3 ML INHALATION SCH ×3 (07:50→19:26)
[2018-02-23] MEDS: FUROSEMIDE 80 MG TAB PO SCH ×2 (08:38→15:31)
[2018-02-23] MEDS: METOLAZONE 5 MG TAB PO SCH (08:39)
[2018-02-23] MEDS: APIXABAN 5 MG TAB PO SCH ×2 (08:39→20:55)
[2018-02-23] MEDS: SPIRONOLACTONE 25 MG TAB PO SCH (08:39)
[2018-02-23] MEDS: POTASSIUM CHLORIDE ER 20 MEQ TAB.ER PO SCH (08:39)
[2018-02-23] MEDS: LOSARTAN 25 MG TAB PO SCH (08:39)
[2018-02-23] MEDS: METOPROLOL SUCCINATE (ER) 25 MG TAB.ER.24H PO SCH (08:39)
[2018-02-23 08:51] LABS: Calcium 8.5 mg/dL (8.4-10.2); Potassium 3.9 mmol/L (3.5-5.1)
--- NOTE | 2018-02-23 11:32 | P.PN ---
Subjective Mrs. Funk is a pleasant 67-year-old female past medical history significant for asthma, osteoarthritis and morbid obesity. Upon admission to the hospital she was found to be in atrial fibrillation with controlled ventricular response. She was started on toprl for rate control and Eliquis for anticoagulation. She has been maintained on IV lasix secondary to significant lower extremity swelling. Her weight has consistently gone down since admission from 161.9 on admission to 144 today. Cr 1.14, sodium 138, potassium 3.9. Blood pressure 135/65 heart rate 68 afebrile and maintaining oxygen saturation on room air. She continues to be in atrial fibrillation at the time of my exam, telemetry tracings. She denies chest pain, dizziness, shortness of breath, nausea, vomiting or diaphoresis. She continues with a dry cough. Tightness in her legs has mildly decreased with no further weeping noted. Telemetry tracings reveal an episode of possible non-sustained VT although is irregular and more likely to be abberancy with inconsistent morphology from previous VT. Objective - Vital Signs Vital signs: Vital Signs Temp 97.7 F 02/23/18 05:00 Pulse 72 02/23/18 08:01 Resp 16 02/23/18 05:00 BP 135/65 02/23/18 05:00 Pulse Ox 94 L 02/23/18 05:00 Intake & Output 02/22/18 02/23/18 02/23/18 18:59 06:59 18:59 Intake Total 500 1140 Balance 500 1140 Weight 146.828 kg 144 kg Intake: Oral 500 1140 Other: Voiding Method Bedside Commode Bedside Commode # Voids 5 4 # Bowel Movements 5 4 - Exam GENERAL: Well-appearing, well-nourished and in no acute distress. Morbidly obese. NECK: Supple without JVD or thyromegaly. LUNGS: Bibasilar rales, no wheezes or rhonchi. Respiration equal and unlabored. HEART: Irregular rate and rhythm with systolic ejection murmurs, no rubs or gallops. S1 and S2 heard. EXTREMITIES: Normal range of motion, ongoing significant pitting b/l lower extremity edema with pigmentation changes. Mild improvement in tightness of legs with ongoing significant edema. No clubbing or cyanosis. - Labs CBC & Chem 7: 02/22/18 06:33 06/06/18 07:35 Labs: Abnormal Lab Results - Last 24 Hours (Table) 02/23/18 Range/Units 07:35 Chloride 93 L (98-107) mmol/L Carbon Dioxide 36 H (22-30) mmol/L BUN 39 H (7-17) mg/dL Creatinine 1.14 H (0.52-1.04) mg/dL Glucose 124 H (74-99) mg/dL Assessment and Plan Assessment: ASSESSMENT 1. New onset paroxysmal atrial fibrillation with controlled ventricular response on assisted anticoagulation with Eliquis 2. Pulmonary hypertension, RVSP 62.17 mmHg, moderate 3. Acute on chronic heart failure, preserved ejection fraction 4. Pulmonary embolism, 5. Hypertension 6. Morbid obesity PLAN Transition to oral diuretics 80 mg BID. Continue with IV diuresis. We will continue to follow and make recommendations based on clinical course. Possible discharge in the next 24 hours. Sleep study will be set up as an outpatient. Nurse Practitioner note has been reviewed, I agree with a documented findings and plan of care. Patient was seen and examined.
--- NOTE | 2018-02-23 12:30 | P.PN ---
Subjective Progress Note Date: 02/23/18 Principal diagnosis: Morbid obesity/obesity hypoventilation syndrome, suspect obstructive sleep apnea A 67-year-old female patient, morbidly obese with chronic lower extremity edema and bronchial asthma. Patient has chronic difficulties mobility and gait and she also admits to chronic lower extremity edema. Her lower extremity edema has got worse over the past 6 months to the point where she is currently weeping from the skin surface and this has affected her ability to move and walk. She has some limited cough and congestion. No chest pain. No pleurisy. No hemoptysis. No chest pain. She presented with some borderline elevation of the proBNP level at 2890 in addition to troponin leak levels being at 0.1 times for respectively. The white cell count is not elevated. Hemoglobin is at 14.5. Echo of the heart showed an ejection fraction of 55-60% along with right ventricular enlargement and right-sided pressure of 62 mmHg in addition to dilation of the IVC with poor inspiratory collapse consistent with increased filling pressure in the right atrial pressure of around 20 mmHg. No evidence of any pericardial effusion. There is evidence of moderate concentric left ventricular hypertrophy consistent with hypertensive heart disease. VQ scan was of indeterminate probability. CT angios the chest shows some limited groundglass changes bilaterally and addition to evidence of questionable filling defect in the lower lobe pulmonary artery branches bilaterally, involving the tertiary already artery branches in addition to a filling defect within the second branch of the right upper lobe pulmonary artery. Patient was started on IV heparin. The patient was subsequently switched Eliquis. The patient was also diuresed with Lasix and currently symptomatic grams of IV Lasix on an hourly basis and addition to Zaroxolyn 5 mg by mouth daily. She is also on Aldactone. Clinically feeling better. Less short of breath. No altered mentation. No history of obstructive sleep apnea although this is a concern as the patient is a component of chronic metabolic alkalosis and the blood work which raises the concern for chronic hypoxic and hypercapnic the story failure and obesity hypoventilation syndrome. The patient is seen again today 02/19/2018 in follow-up in the selective care unit. She is awake and alert in no acute distress. She is breathing easier today as compared to yesterday. Maintaining good O2 saturations in the 90s on room air. She continues to diurese well. She remains on Lasix at 10 mg per hour. Her weight is down from 157 kg to 152 kg today. She has been transitioned to oral anticoagulants in the form of Eliquis. Venous Doppler was inconclusive due to the inability to see blood vessel secondary the patient's body habitus and very tender Lasix. Unable to compress. On today's evaluation of 02/20/2018, the patient has no specific complaints for lower extremities remain quite swollen and edematous and the skin has broken and the patient has superficial losing of fluid from the skin surface. Patient was being diuresed with IV Lasix. She is -1.8 L negative over the past 24 hours. She has a BUN of 42 and creatinine of 1.9 and there is no significant change in her renal function along with diuresis. Patient is on Zaroxolyn 5 mg by mouth daily and Lasix 80 mg IV every 12 hours. She is also on Aldactone. She is also on long-term and to coagulation with Eliquis. She is resting comfortably in her recliner. No fever. No chills. No cellulitis and she has changes related to chronic venous stasis and lower extremities bilaterally. Her body weight continues to drop and is currently down to 152 kg. On 02/21/2018 patient seen in follow-up. She states her breathing is easier today, she is diuresing, and her weight is down to 149.5 kg from 152 kg. She is maintaining negative fluid balance, she states the swelling in her legs is unchanged, but her breathing has improved. She is on room air, her pulse ox is 93%, she is afebrile. Today's labs were reviewed, the CBC is within normal limits, no leukocytosis, renal profile is stable, CO2 is persistently elevated at 34, chloride is 96, sodium is 141, potassium is 3.8. Patient has been ambulating with therapy, and tolerating it well. We will continue current plan of care, continue diuretics, dissipate discharge in the next 24 hours. On 02/22/2018 patient seen in follow-up on medical surgical floor. Denies any dyspnea, she is currently on room air, in the room air pulse ox is 96%, she is afebrile, hemodynamically stable. Her weight is down to 146.8 kg from 149.5 kg in the last 24 hours, patient is maintaining negative fluid balance, however the appearance of lower extremity edema is still significant, and the patient will remain inpatient for continued diuresis. Otherwise she remains stable from the pulmonary standpoint, no acute issues overnight, and the patient will need outpatient follow-up for a sleep study. On 02/23/2018 patient seen again in follow-up. The appearance of edema in bilateral lower extremities is improving, although patient still has significant amount of swelling, and there may be a component of chronic lymphedema. Patient is down another 5.1 kilos in the last 48 hours, and has diuresed extensively on IV diuretics. IV diuretics have been transitioned to oral, patient has been started on Toprol and Eliquis for paroxysmal atrial fibrillation, labs were reviewed, renal profile is very slightly worsened, sodium is 138, potassium is 3.9, chloride is 93. Patient was having symptoms of diarrhea, and C. diff tested negative. Lung sounds are clear to auscultation , she is on room air and maintaining oxygenation above 92%. She is afebrile, he has been ambulating, and tolerating activity well. Objective - Vital Signs Vital signs: Vital Signs Temp 97.7 F 02/23/18 05:00 Pulse 72 02/23/18 08:01 Resp 16 02/23/18 08:00 BP 135/65 02/23/18 05:00 Pulse Ox 94 L 02/23/18 05:00 Intake & Output 02/22/18 02/23/18 02/23/18 18:59 06:59 18:59 Intake Total 500 1140 Output Total 2 Balance 500 1140 -2 Weight 146.828 kg 144 kg Intake: Oral 500 1140 Output: Stool 2 Other: Voiding Method Bedside Commode Bedside Commode Bedside Commode # Voids 5 4 # Bowel Movements 5 4 - Exam Gen. appearance the patient is morbidly obese, comfortable in no acute distress , BMI 55.8 Head exam was generally normal. There was no scleral icterus or corneal arcus. Mucous membranes were moist. Neck is short and supple and there is significant crowding of posterior pharynx with a Mallampati class IV.Neck was supple and without jugular venous distension , thyromegaly, or carotid bruits. Carotids were easily palpable bilaterally. There was no adenopathy. Lungs sounds are diminished in lung bases bilaterally otherwise clear. There is no wheezes or rhonchi or any crackles. Heart sounds are showing accentuation of the second heart sound. No right ventricular heave or thrill. No significant murmurs and the patient has a regular S1 and S2 consistent with sinus rhythm. Abdomen is morbidly obese and orders cannot be accurately palpated. There is no direct tenderness rebound tensile guarding. Organs cannot be accurately assessed. No ascites. Extremities show extensive edema in lower oximetry is bilaterally +3 pitting superficial skin ulceration without evidence of any cellulitis, the weeping has stopped. Pulses are diminished at the present. There is no cyanosis or clubbing. Neurologically the patient is awake and alert and there is no focal neurological deficit. Skin that is some superficial wounds in lower extremity is bilaterally with the fluid is seeping off due to extensive edema lower extremities. No cellulitis. No deep wounds. - Labs CBC & Chem 7: 02/22/18 06:33 02/23/18 07:35 Labs: Abnormal Lab Results - Last 24 Hours (Table) 02/23/18 Range/Units 07:35 Chloride 93 L (98-107) mmol/L Carbon Dioxide 36 H (22-30) mmol/L BUN 39 H (7-17) mg/dL Creatinine 1.14 H (0.52-1.04) mg/dL Glucose 124 H (74-99) mg/dL Assessment and Plan Plan: Assessment: 1 morbid obesity/obesity hypoventilation syndrome with suspect obstructive sleep apnea. The patient has obvious features of pickwickian syndrome as she has a BMI of 57.7, chronic hypoxic and hypercapnic respiratory failure with secondary metabolic alkalosis, moderate severe pulmonary potential related to chronic hypoxemic respiratory failure and evidence of right-sided heart failure 2 extensive lower extremity, +3 pitting secondary to above 3 pulmonary embolism, suspicious yet not definite. Patient has been subjected to anticoagulation to which I agree specially with her morbid obesity and sedentary lifestyle and the patient remains with an increased risk of having VTE in the future. Ongoing also suggest to obtain a Doppler of the lower extremities to rule out any DVT specially with extensive edema in the legs bilaterally 4 chronic bronchial asthma currently inactive in stable 5 osteoarthritis 6 hypertensive heart disease with concentric left ventricular hypertrophy Plan Patient continues to diurese, she is down another 5.1 kg in the last 48 hours. Continue oral diuretics, continue current plan of treatment, continue monitoring renal profile, electrolytes. Possible discharge home tomorrow, and outpatient follow-up with Dr. rFagoso for a sleep study. I performed a history & physical examination of the patient and discussed their management with my nurse practitioner, Elva Shafer. I reviewed the nurse practitioner's note and agree with the documented findings and plan of care. Lung sounds are clear. The findings and the impression was discussed with the patient. I attest to the documentation by the nurse practitioner. Time with Patient: Less than 30
[2018-02-23] MEDS: SILVER sulfADIAZINE Cream 400 GM 1 APPLIC APPLIC TOPICAL SCH (13:37)
[2018-02-23 13:48] VITALS: BMI 52.8
[2018-02-24 05:45] VITALS: TEMP 97.7
[2018-02-24] MEDS: ALBUTEROL NEBULIZED 2.5 MG/3 ML INHALATION SCH ×2 (07:01→12:23)
--- NOTE | 2018-02-24 08:34 | P.DS ---
Providers Date of admission: 02/15/18 14:34 Attending physician: Kit Mtz Consults: 02/15/18 14:35 Consult Physician Routine Consulting Provider: Brigida Garcia Consult Reason/Comments: New-onset heart failure, atrial fibrillation, elevated troponin Do you want consulting provider notified?: Yes 02/17/18 12:13 Consult Physician Routine Consulting Provider: Cami Fragoso Consult Reason/Comments: sob Do you want consulting provider notified?: Yes Primary care physician: Kit Mtz - Discharge Diagnosis(es) (1) Atrial fibrillation Current Visit: Yes Status: Acute (2) Congestive heart failure Current Visit: Yes Status: Acute (3) Pulmonary embolus Current Visit: Yes Status: Acute (4) Morbid obesity Current Visit: Yes Status: Acute (5) Pulmonary hypertension Current Visit: Yes Status: Acute Hospital Course: This is a discharge summary on a 67-year-old white female essentially admitted for shortness of breath. She was found have atrial fibrillation with normal response. Evaluation from a cardiac perspective didn't end up showing significant pulmonary hypertension with pulmonary embolus which she is now on Eliquis 4. After significant diuresis she is now stabilizing much her baseline. We had a long discussion regarding dietary and exercise modifications. The patient will be discharged in stable condition to follow-up with me in about 3-5 days. Patient Condition at Discharge: Stable Plan - Discharge Summary Discharge Rx Participant: No New Discharge Prescriptions: No Action Naproxen Sodium [Aleve] 220 mg PO BID PRN PRN Reason: Pain Budesonide/Formoterol Fumarate [Symbicort 160-4.5 Mcg Inhaler] 2 puff INHALATION BID Discharge Medication List Budesonide/Formoterol Fumarate [Symbicort 160-4.5 Mcg Inhaler] 2 puff INHALATION BID 02/15/18 [History] Naproxen Sodium [Aleve] 220 mg PO BID PRN 02/15/18 [History] Follow up Appointment(s)/Referral(s): Brigida Garcia MD [STAFF PHYSICIAN] - 2 Weeks (Office will call with follow up appointment.) [facility], [NON-STAFF] - Cami Fragoso MD [STAFF PHYSICIAN] - 1 Week Kit Mtz MD [Primary Care Provider] - 3 Days Patient Instructions/Handouts: Heart Failure (DC), Heart Healthy Diet (DC) Activity/Diet/Wound Care/Special Instructions: Pt Thang copay is $45/month Discharge Disposition: HOME WITH HOME HEALTH SERVICES
[2018-02-24 08:38] VITALS: BP 123/67
[2018-02-24] MEDS: POTASSIUM CHLORIDE ER 20 MEQ TAB.ER PO SCH (08:39)
[2018-02-24] MEDS: METOPROLOL SUCCINATE (ER) 25 MG TAB.ER.24H PO SCH (08:39)
[2018-02-24] MEDS: APIXABAN 5 MG TAB PO SCH (08:39)
[2018-02-24] MEDS: SPIRONOLACTONE 25 MG TAB PO SCH (08:39)
[2018-02-24] MEDS: METOLAZONE 5 MG TAB PO SCH (08:39)
[2018-02-24] MEDS: FUROSEMIDE 80 MG TAB PO SCH (08:39)
[2018-02-24] MEDS: LOSARTAN 25 MG TAB PO SCH (08:39)
[2018-02-24] MEDS: SILVER sulfADIAZINE Cream 400 GM 1 APPLIC APPLIC TOPICAL SCH (08:41)
--- NOTE | 2018-02-24 10:23 | P.PN ---
Subjective Mrs. Funk is a pleasant 67-year-old female past medical history significant for asthma, osteoarthritis and morbid obesity. Upon admission to the hospital she was found to be in atrial fibrillation with controlled ventricular response. She was started on toprl for rate control and Eliquis for anticoagulation. She has been maintained on IV lasix secondary to significant lower extremity swelling. Her weight has consistently gone down since admission from 161.9 on admission to 144 today. Cr 1.14, sodium 138, potassium 3.9. Blood pressure 135/65 heart rate 68 afebrile and maintaining oxygen saturation on room air. She continues to be in atrial fibrillation at the time of my exam, telemetry tracings. She denies chest pain, dizziness, shortness of breath, nausea, vomiting or diaphoresis. She continues with a dry cough. Tightness in her legs has mildly decreased with no further weeping noted. Telemetry tracings reveal an episode of possible non-sustained VT although is irregular and more likely to be abberancy with inconsistent morphology from previous VT. 02/24/2018 Weight is down today to 136.6 kg. Ongoing swelling to the lower extremities with evidence of weeping today. Breathing is stable with no worsening of shortness of breath. Telemetry tracings reveal atrial fibrillation with PVC's. No VT noted. PO lasix was started yesterday. Blood pressure 123/67 heart rate 78 afebrile maintaining oxygen saturation on room air. Objective - Vital Signs Vital signs: Vital Signs Temp 97.7 F 02/24/18 05:00 Pulse 78 02/24/18 08:37 Resp 16 02/24/18 07:11 BP 123/67 02/24/18 08:37 Pulse Ox 92 L 02/24/18 07:01 Intake & Output 02/23/18 02/24/18 02/24/18 18:59 06:59 18:59 Intake Total 680 1380 480 Output Total 306 1 Balance 374 1379 480 Weight 144 kg 136.6 kg Intake: Oral 680 1380 480 Output: Urine 300 Stool 6 Urine/Stool Mix 1 Other: Voiding Method Bedside Commode Bedside Commode # Voids 4 2 # Bowel Movements 2 - Exam GENERAL: Well-appearing, well-nourished and in no acute distress. Morbidly obese. NECK: Supple without JVD or thyromegaly. LUNGS: Bibasilar rales, no wheezes or rhonchi. Respiration equal and unlabored. HEART: Irregular rate and rhythm with systolic ejection murmurs, no rubs or gallops. S1 and S2 heard. EXTREMITIES: Normal range of motion, ongoing significant pitting b/l lower extremity edema with pigmentation changes and weeping. No clubbing or cyanosis. - Labs CBC & Chem 7: 02/22/18 06:33 02/23/18 07:35 Assessment and Plan Assessment: ASSESSMENT 1. New onset paroxysmal atrial fibrillation with controlled ventricular response on intermediate frame tender anticoagulation with Eliquis 2. Pulmonary hypertension, RVSP 62.17 mmHg, moderate 3. Acute on chronic heart failure, preserved ejection fraction 4. Pulmonary embolism, 5. Hypertension 6. Morbid obesity PLAN She is tolerating increased activity and ambulation without significant shortness of breath. Oral lasix dose for home is 80 mg BID. Follow up BMP in 3 days. Continue eliquis and toprol for management of atrial fibrillation and embolic stroke prevention. Follow up with Dr. Garcia in 2 weeks. Nurse Practitioner note has been reviewed, I agree with a documented findings and plan of care. Patient was seen and examined.
[2018-02-24 12:26] VITALS: PULSE 52
--- NOTE | 2018-02-24 12:39 | P.PN ---
Subjective Progress Note Date: 02/24/18 Principal diagnosis: Morbid obesity/obesity hypoventilation syndrome, suspect obstructive sleep apnea A 67-year-old female patient, morbidly obese with chronic lower extremity edema and bronchial asthma. Patient has chronic difficulties mobility and gait and she also admits to chronic lower extremity edema. Her lower extremity edema has got worse over the past 6 months to the point where she is currently weeping from the skin surface and this has affected her ability to move and walk. She has some limited cough and congestion. No chest pain. No pleurisy. No hemoptysis. No chest pain. She presented with some borderline elevation of the proBNP level at 2890 in addition to troponin leak levels being at 0.1 times for respectively. The white cell count is not elevated. Hemoglobin is at 14.5. Echo of the heart showed an ejection fraction of 55-60% along with right ventricular enlargement and right-sided pressure of 62 mmHg in addition to dilation of the IVC with poor inspiratory collapse consistent with increased filling pressure in the right atrial pressure of around 20 mmHg. No evidence of any pericardial effusion. There is evidence of moderate concentric left ventricular hypertrophy consistent with hypertensive heart disease. VQ scan was of indeterminate probability. CT angios the chest shows some limited groundglass changes bilaterally and addition to evidence of questionable filling defect in the lower lobe pulmonary artery branches bilaterally, involving the tertiary already artery branches in addition to a filling defect within the second branch of the right upper lobe pulmonary artery. Patient was started on IV heparin. The patient was subsequently switched Eliquis. The patient was also diuresed with Lasix and currently symptomatic grams of IV Lasix on an hourly basis and addition to Zaroxolyn 5 mg by mouth daily. She is also on Aldactone. Clinically feeling better. Less short of breath. No altered mentation. No history of obstructive sleep apnea although this is a concern as the patient is a component of chronic metabolic alkalosis and the blood work which raises the concern for chronic hypoxic and hypercapnic the story failure and obesity hypoventilation syndrome. The patient is seen again today 02/19/2018 in follow-up in the selective care unit. She is awake and alert in no acute distress. She is breathing easier today as compared to yesterday. Maintaining good O2 saturations in the 90s on room air. She continues to diurese well. She remains on Lasix at 10 mg per hour. Her weight is down from 157 kg to 152 kg today. She has been transitioned to oral anticoagulants in the form of Eliquis. Venous Doppler was inconclusive due to the inability to see blood vessel secondary the patient's body habitus and very tender Lasix. Unable to compress. On today's evaluation of 02/20/2018, the patient has no specific complaints for lower extremities remain quite swollen and edematous and the skin has broken and the patient has superficial losing of fluid from the skin surface. Patient was being diuresed with IV Lasix. She is -1.8 L negative over the past 24 hours. She has a BUN of 42 and creatinine of 1.9 and there is no significant change in her renal function along with diuresis. Patient is on Zaroxolyn 5 mg by mouth daily and Lasix 80 mg IV every 12 hours. She is also on Aldactone. She is also on long-term and to coagulation with Eliquis. She is resting comfortably in her recliner. No fever. No chills. No cellulitis and she has changes related to chronic venous stasis and lower extremities bilaterally. Her body weight continues to drop and is currently down to 152 kg. On 02/21/2018 patient seen in follow-up. She states her breathing is easier today, she is diuresing, and her weight is down to 149.5 kg from 152 kg. She is maintaining negative fluid balance, she states the swelling in her legs is unchanged, but her breathing has improved. She is on room air, her pulse ox is 93%, she is afebrile. Today's labs were reviewed, the CBC is within normal limits, no leukocytosis, renal profile is stable, CO2 is persistently elevated at 34, chloride is 96, sodium is 141, potassium is 3.8. Patient has been ambulating with therapy, and tolerating it well. We will continue current plan of care, continue diuretics, dissipate discharge in the next 24 hours. On 02/22/2018 patient seen in follow-up on medical surgical floor. Denies any dyspnea, she is currently on room air, in the room air pulse ox is 96%, she is afebrile, hemodynamically stable. Her weight is down to 146.8 kg from 149.5 kg in the last 24 hours, patient is maintaining negative fluid balance, however the appearance of lower extremity edema is still significant, and the patient will remain inpatient for continued diuresis. Otherwise she remains stable from the pulmonary standpoint, no acute issues overnight, and the patient will need outpatient follow-up for a sleep study. On 02/23/2018 patient seen again in follow-up. The appearance of edema in bilateral lower extremities is improving, although patient still has significant amount of swelling, and there may be a component of chronic lymphedema. Patient is down another 5.1 kilos in the last 48 hours, and has diuresed extensively on IV diuretics. IV diuretics have been transitioned to oral, patient has been started on Toprol and Eliquis for paroxysmal atrial fibrillation, labs were reviewed, renal profile is very slightly worsened, sodium is 138, potassium is 3.9, chloride is 93. Patient was having symptoms of diarrhea, and C. diff tested negative. Lung sounds are clear to auscultation , she is on room air and maintaining oxygenation above 92%. She is afebrile, he has been ambulating, and tolerating activity well. 02/24/2018 patient seen again in follow-up. Denies any dyspnea, denies any chest pain, she continues to diurese, and her weight is down by another 7.4 kilos in the last 24 hours. Her peripheral edema is improving, however there still some residual edema/lymphedema. Appears on her bilateral lower extremities are not weeping. There is no evidence of cellulitis. She remains on room air, pulse ox is 92%, she has been ambulating, and tolerating activity well. She is anticipated to go home today Objective - Vital Signs Vital signs: Vital Signs Temp 97.7 F 02/24/18 05:00 Pulse 52 L 02/24/18 12:32 Resp 16 02/24/18 12:32 BP 123/67 02/24/18 08:37 Pulse Ox 92 L 02/24/18 07:01 Intake & Output 02/23/18 02/24/18 02/24/18 18:59 06:59 18:59 Intake Total 680 1380 480 Output Total 306 1 2 Balance 374 1379 478 Weight 144 kg 136.6 kg Intake: Oral 680 1380 480 Output: Urine 300 Stool 6 2 Urine/Stool Mix 1 Other: Voiding Method Bedside Commode Bedside Commode Bedside Commode # Voids 4 2 # Bowel Movements 2 - Exam Gen. appearance the patient is morbidly obese, comfortable in no acute distress , BMI 55.8 Head exam was generally normal. There was no scleral icterus or corneal arcus. Mucous membranes were moist. Neck is short and supple and there is significant crowding of posterior pharynx with a Mallampati class IV.Neck was supple and without jugular venous distension , thyromegaly, or carotid bruits. Carotids were easily palpable bilaterally. There was no adenopathy. Lungs sounds are diminished in lung bases bilaterally otherwise clear. There is no wheezes or rhonchi or any crackles. Heart sounds are showing accentuation of the second heart sound. No right ventricular heave or thrill. No significant murmurs and the patient has a regular S1 and S2 consistent with sinus rhythm. Abdomen is morbidly obese and orders cannot be accurately palpated. There is no direct tenderness rebound tensile guarding. Organs cannot be accurately assessed. No ascites. Extremities show extensive edema in lower oximetry is bilaterally +3 pitting superficial skin ulceration without evidence of any cellulitis, the weeping has stopped. Pulses are diminished at the present. There is no cyanosis or clubbing. Neurologically the patient is awake and alert and there is no focal neurological deficit. Skin that is some superficial wounds in lower extremity, patient has been diuresed extensively, and wounds no longer weeping. No cellulitis. No deep wounds. - Labs CBC & Chem 7: 02/22/18 06:33 02/23/18 07:35 Assessment and Plan Plan: Assessment: 1 morbid obesity/obesity hypoventilation syndrome with suspect obstructive sleep apnea. The patient has obvious features of pickwickian syndrome as she has a BMI of 57.7, chronic hypoxic and hypercapnic respiratory failure with secondary metabolic alkalosis, moderate severe pulmonary potential related to chronic hypoxemic respiratory failure and evidence of right-sided heart failure 2 extensive lower extremity, +3 pitting secondary to above, improving with diuresis 3 pulmonary embolism, suspicious yet not definite. Patient has been subjected to anticoagulation to which I agree specially with her morbid obesity and sedentary lifestyle and the patient remains with an increased risk of having VTE in the future. Ongoing also suggest to obtain a Doppler of the lower extremities to rule out any DVT specially with extensive edema in the legs bilaterally 4 chronic bronchial asthma currently inactive in stable 5 osteoarthritis 6 hypertensive heart disease with concentric left ventricular hypertrophy Plan Patient continues to diurese, she is down another 7.4 kg in the last 24 hours. Remains stable from pulmonary standpoint. Continue oral diuretics, continue current plan of treatment, continue monitoring renal profile, electrolytes. Possible discharge home tomorrow, and outpatient follow-up with Dr. Fragoso for a sleep study. I performed a history & physical examination of the patient and discussed their management with my nurse practitioner, Elva Shafer. I reviewed the nurse practitioner's note and agree with the documented findings and plan of care. Lung sounds are clear. The findings and the impression was discussed with the patient. I attest to the documentation by the nurse practitioner. Time with Patient: Less than 30
== END 2018-02-24 14:45 | disposition home health service (06) | DRG 291 ==
LOC: EC 11:14 → 6SEL 14:34 → 5MS5E 02-21 09:54
PROVIDERS: ADMIT Family Medicine; ATTEND Family Medicine
DX: I11.0 Hypertensive heart disease with heart failure (principal); I26.99 Other pulmonary embolism without acute cor pulmonale; E66.2 Morbid (severe) obesity with alveolar hypoventilation; E87.3 Alkalosis; J96.11 Chronic respiratory failure with hypoxia; J96.12 Chronic respiratory failure with hypercapnia; Z68.43 Body mass index [BMI] 50.0-59.9, adult; I50.33 Acute on chronic diastolic (congestive) heart failure; I27.29 Other secondary pulmonary hypertension; I27.81 Cor pulmonale (chronic); I48.0 Paroxysmal atrial fibrillation; I49.3 Ventricular premature depolarization; I87.8 Other specified disorders of veins; J45.909 Unspecified asthma, uncomplicated; M19.90 Unspecified osteoarthritis, unspecified site; T50.2X5A Adverse effect of carbonic-anhydrase inhibitors, benzothiadiazides and other diuretics, initial encounter; R35.8 Other polyuria; M79.672 Pain in left foot; R77.9 Abnormality of plasma protein, unspecified; Z79.51 Long term (current) use of inhaled steroids; Z88.6 Allergy status to analgesic agent; Z88.0 Allergy status to penicillin; Z88.2 Allergy status to sulfonamides; Z91.048 Other nonmedicinal substance allergy status; Z87.891 Personal history of nicotine dependence; Z82.49 Family history of ischemic heart disease and other diseases of the circulatory system; Z82.0 Family history of epilepsy and other diseases of the nervous system
CPT/HCPCS: 36415; 71046; 71275; 78582; 80048; 80051; 80053; 82272; 82550; 82553; 83735; 83880; 84132; 84443; 84484; 85025; 85610; 85730; 87324; 93005; 93306; 93970; 94640; 94760; 96374; 96375; 99291

== ENCOUNTER → 2018-03-16 | Outpatient (CLI) | payer MEDICARE | END | disposition home or self-care (01) | LOC: LABWHC1 11:19 | PROVIDERS: ATTEND Internal Medicine Critical Care Medicine | DX: R09.02 Hypoxemia (principal); Z53.9 Procedure and treatment not carried out, unspecified reason ==

== ENCOUNTER 2018-03-18 09:01 | Day surgery (SDC) | payer MEDICARE ==
[2018-03-17 09:24] VITALS: BMI 48.2
[~2018-03-18 09:01] MED LIST: LACTATED RINGERS 1,000 ML IV SCH
[2018-03-18 09:51] VITALS: TEMP 98.1
[2018-03-18] MEDS ORDERED: PROPOFOL 10 MG/ML 20 ML VIAL IV ONE (09:56)
--- NOTE | 2018-03-18 10:19 | P.GSHP ---
History of Present Illness H&P Date: 03/18/18 Chief Complaint: Screening colonoscopy This is a 67-year-old female who presents today for screening colonoscopy. She denies a significant GI complaints. Past Medical History Past Medical History: Atrial Fibrillation, Asthma, Heart Failure, Hypertension, Osteoarthritis (OA), Pneumonia, Pulmonary Embolus (PE), Skin Disorder Additional Past Medical History / Comment(s): Morbid obesity. chronic bronchial asthma, pulmonary hypertension moderate to severe with evidence of right-sided heart failure. WOUND LT LOWER LEG - USING SILVER SULFADINE; CELLULITIS JOLANTA LEGS , EDEMA LEGS/FEET. History of Any Multi-Drug Resistant Organisms: None Reported Past Surgical History: Ear Surgery, Tonsillectomy Additional Past Surgical History / Comment(s): INNER EAR SURGERY Past Anesthesia/Blood Transfusion Reactions: Motion Sickness Smoking Status: Former smoker - Past Family History Mother Family Medical History: Dementia Father Family Medical History: Cancer, Congestive Heart Failure (CHF) Additional Family Medical History / Comment(s): Valve replacement. LEUKEMIA. Medications and Allergies Home Medications Medication Instructions Recorded Confirmed Type Budesonide/Formoterol Fumarate 2 puff INHALATION BID 02/15/18 03/18/18 History [Symbicort 160-4.5 Mcg Inhaler] Naproxen Sodium [Aleve] 220 mg PO BID PRN 02/15/18 03/18/18 History Apixaban [Eliquis] 5 mg PO BID #60 tab 02/24/18 03/18/18 Rx Furosemide [Lasix] 80 mg PO BID@0900,1600 #60 tab 02/24/18 03/18/18 Rx Losartan [Cozaar] 25 mg PO DAILY #30 tab 02/24/18 03/18/18 Rx Metolazone [Zaroxolyn] 5 mg PO DAILY #30 tab 02/24/18 03/18/18 Rx Metoprolol Succinate (ER) [Toprol 25 mg PO DAILY #30 tab.er.24h 02/24/18 Rx XL] Spironolactone [Aldactone] 25 mg PO DAILY #30 tab 02/24/18 03/18/18 Rx Clindamycin HCl [Cleocin] 300 mg PO Q6HR 03/17/18 03/18/18 History Potassium Chloride [Klor-Con 20] 20 meq PO DAILY 03/17/18 03/18/18 History Allergies Allergy/AdvReac Type Severity Reaction Status Date / Time aspirin Allergy Rash/Hives Verified 03/18/18 09:49 Penicillins Allergy Unknown Verified 03/18/18 09:49 pollen extracts Allergy Unknown Verified 03/18/18 09:49 ragweed pollen Allergy Unknown Verified 03/18/18 09:49 Sulfa (Sulfonamide Allergy Unknown Verified 03/18/18 09:49 Antibiotics) dust Allergy Unknown Uncoded 03/18/18 09:49 Surgical - Exam Vital Signs Temp Pulse Resp BP Pulse Ox 98.1 F 80 16 112/59 95 03/18/18 09:35 03/18/18 09:35 03/18/18 09:35 03/18/18 09:35 03/18/18 09:35 - General well developed, no distress - Eyes PERRL - ENT normal pinna - Neck no masses - Respiratory normal expansion - Cardiovascular Rhythm: regular - Abdomen Abdomen: soft, non tender Assessment and Plan Assessment: We'll perform screening colonoscopy.
--- NOTE | 2018-03-18 10:34 | P.OP ---
Date of Procedure: 03/18/18 Preoperative Diagnosis: Screening colonoscopy Postoperative Diagnosis: Mild diverticulosis Procedure(s) Performed: Colonoscopy Anesthesia: MAC Surgeon: Red Glasgow Pathology: none sent Condition: stable Disposition: PACU Description of Procedure: The patient's placed on the endoscopy table in the lateral position. She received IV sedation. Digital rectal exam was performed which revealed no abnormalities. The flexible colonoscope was then placed patient anus passed throughout the entire colon. The ileocecal valve was visualized. The cecum, ascending and transverse colon appeared normal. In the descending; was mild diverticular changes. The scope was then brought back the rectum and this appeared normal. Scope was withdrawn for patient.
[2018-03-18 10:50] VITALS: BP 134/69; PULSE 62; RESP 20
== END 2018-03-18 11:09 | disposition home or self-care (01) ==
LOC: ORWHC2ENDO 09:01
PROVIDERS: ATTEND Surgery
DX: Z12.11 Encounter for screening for malignant neoplasm of colon (principal); K57.30 Diverticulosis of large intestine without perforation or abscess without bleeding; I11.0 Hypertensive heart disease with heart failure; I50.9 Heart failure, unspecified; I48.91 Unspecified atrial fibrillation; J45.909 Unspecified asthma, uncomplicated; M19.90 Unspecified osteoarthritis, unspecified site; I27.29 Other secondary pulmonary hypertension; E66.01 Morbid (severe) obesity due to excess calories; Z68.42 Body mass index [BMI] 45.0-49.9, adult; Z88.2 Allergy status to sulfonamides; Z88.0 Allergy status to penicillin; Z88.6 Allergy status to analgesic agent; Z91.09 Other allergy status, other than to drugs and biological substances; Z79.51 Long term (current) use of inhaled steroids; Z79.01 Long term (current) use of anticoagulants; Z79.899 Other long term (current) drug therapy; Z86.711 Personal history of pulmonary embolism; Z86.718 Personal history of other venous thrombosis and embolism; Z87.891 Personal history of nicotine dependence; Z82.49 Family history of ischemic heart disease and other diseases of the circulatory system; Z80.9 Family history of malignant neoplasm, unspecified
CPT/HCPCS: G0121; J2704

== ENCOUNTER → 2018-03-28 | Outpatient (CLI) | payer MEDICARE ==
[2018-03-28 11:38] LABS: ABG HCO3 29 mmol/L (21-25); ABG Oxygen Saturation 94.7 % (94-97); ABG PCO2 42 mmHg (35-45); ABG PH 7.45 (7.35-7.45); ABG PO2 69 mmHg (83-108); ABG TCO2 30 mmol/L (19-24)
== END | disposition home or self-care (01) ==
LOC: LABWHC1 11:21
PROVIDERS: ATTEND Internal Medicine Critical Care Medicine
DX: R09.02 Hypoxemia (principal)
CPT/HCPCS: 36600; 82805

== ENCOUNTER → 2018-04-04 | Outpatient (CLI) | payer MEDICARE ==
--- NOTE | 2018-04-04 12:53 | MM ---
Reason for exam: screening (asymptomatic). Baseline mammogram. History: Patient is postmenopausal and is nulliparous. Physical Findings: Nurse did not find any significant physical abnormalities on exam. MG 3D Screening Mammo W/Cad Bilateral CC and MLO view(s) were taken. There are scattered fibroglandular densities. Benign intramammary lymph node on the left upper outer quadrant. Scattered benign round and vascular calcifications. These results were verbally communicated with the patient and result sheet given to the patient on 04/04/18. ASSESSMENT: Negative, BI-RAD 1 RECOMMENDATION: Routine screening mammogram of both breasts in 1 year.
== END | disposition home or self-care (01) ==
LOC: RADMAMWWP 10:59
PROVIDERS: ATTEND Family Medicine
DX: Z12.31 Encounter for screening mammogram for malignant neoplasm of breast (principal)
CPT/HCPCS: 77063; 77067

== ENCOUNTER 2021-06-23 22:53 | Emergency (ER) | payer MEDICARE, OTHER ==
[2021-06-23 23:09] VITALS: TEMP 98.3
--- NOTE | 2021-06-24 00:18 | CT ---
EXAMINATION TYPE: CT brain wo con DATE OF EXAM: 06/24/2021 COMPARISON: None HISTORY: headache CT DLP: 1090.4 mGycm Automated exposure control for dose reduction was used. Images obtained of the brain without contrast. There is cerebral cortical atrophy. There is no mass effect nor midline shift. There is no sign of in tracranial hemorrhage. There is 8mm hypodensity in the insula right temporal lobe consistent with vir hernandez Edenilson space. The calvarium is intact. Skull base is intact. IMPRESSION: Cerebral atrophy. No acute intracranial abnormality.
[2021-06-24] MEDS ORDERED: IBUPROFEN 400 MG TAB PO STA (01:45)
[2021-06-24] MEDS ORDERED: ACETAMINOPHEN TAB 500 MG TAB PO STA (01:47)
--- NOTE | 2021-06-24 01:47 | ED ---
Headache HPI - General Chief Complaint: Headache Stated Complaint: Headache,Fever Time Seen by Provider: 06/23/21 23:19 Mode of arrival: EMS Limitations: no limitations - History of Present Illness Initial Comments: This patient is 70-year-old woman who presents with bifrontal/temporal headache that has been coming on over the past day. She states initially was helped with Tylenol but then they stopped giving it to her at her long-term care facility. The patient states she does not tend to get headaches and so that this one concerned her. No strokelike symptoms. No fever or chills. No neck pain. Patient states she does feel thirsty and may be dehydrated MD Complaint: headache Onset/Timin -: days(s) Onset Description: gradual Location: right, left, temporal Severity: moderate Quality: aching Consistency: constant Improves With: medication Worsens With: none Treatments Prior to Arrival: Acetaminophen - Related Data Home Medications Medication Instructions Recorded Confirmed Budesonide/Formoterol Fumarate 2 puff INHALATION RT-BID 02/15/18 05/10/18 [Symbicort 160-4.5 Mcg Inhaler] Naproxen Sodium [Aleve] 220 mg PO BID PRN 02/15/18 05/10/18 Potassium Chloride [Klor-Con 20] 20 meq PO DAILY 03/17/18 05/10/18 Acetaminophen [Tylenol] 1,000 mg PO Q4-6H PRN 05/10/18 05/10/18 Furosemide [Lasix] 80 mg PO BID 05/10/18 05/10/18 Previous Rx's Medication Instructions Recorded Apixaban [Eliquis] 5 mg PO BID #60 tab 02/24/18 Losartan [Cozaar] 25 mg PO DAILY #30 tab 02/24/18 Metoprolol Succinate (ER) [Toprol 25 mg PO DAILY #30 tab.er.24h 02/24/18 XL] Spironolactone [Aldactone] 25 mg PO DAILY #30 tab 02/24/18 metOLazone [Zaroxolyn] 5 mg PO DAILY #30 tab 02/24/18 Amitriptyline HCl 50 mg PO HS #30 tab 04/11/18 Allergies Allergy/AdvReac Type Severity Reaction Status Date / Time aspirin Allergy Rash/Hives Verified 05/10/18 13:10 Penicillins Allergy Unknown Verified 05/10/18 13:10 pollen extracts Allergy Unknown Verified 05/10/18 13:10 ragweed pollen Allergy Unknown Verified 05/10/18 13:10 Sulfa (Sulfonamide Allergy Unknown Verified 05/10/18 13:10 Antibiotics) dust Allergy Unknown Uncoded 05/10/18 12:25 Review of Systems ROS Statement: Those systems with pertinent positive or pertinent negative responses have been documented in the HPI. ROS Other: All systems not noted in ROS Statement are negative. Constitutional: Denies: fever, chills, weakness Eyes: Denies: eye pain, vision change ENT: Denies: ear pain, hearing loss Respiratory: Denies: cough, dyspnea Cardiovascular: Denies: chest pain, syncope Gastrointestinal: Denies: vomiting Skin: Denies: rash Neurological: Reports: headache. Denies: weakness, numbness, confusion Past Medical History Past Medical History: Atrial Fibrillation, Asthma, Heart Failure, Hypertension, Osteoarthritis (OA), Skin Disorder Additional Past Medical History / Comment(s): pulmonary hypertension moderate to severe with evidence of right-sided heart failure, wounds on left leg-goes to [facility] on mondays, cellulitis elsy legs. pmh listed pe-pt ated she was never told that it was verified History of Any Multi-Drug Resistant Organisms: MRSA, VRE Date of last positivie culture/infection: 07/28/20 MRSA 09/29/19 MDRO Source:: URINE ESBL MRSA LEG Past Surgical History: Ear Surgery, Tonsillectomy Additional Past Surgical History / Comment(s): inner ear surg.colonoscopy Past Anesthesia/Blood Transfusion Reactions: No Reported Reaction Past Psychological History: No Psychological Hx Reported Past Alcohol Use History: None Reported Past Drug Use History: None Reported - Past Family History Mother Family Medical History: Dementia Father Family Medical History: Cancer, Congestive Heart Failure (CHF) Additional Family Medical History / Comment(s): Valve replacement. LEUKEMIA. General Exam Limitations: no limitations General appearance: alert, in no apparent distress Head exam: Present: atraumatic, normocephalic Eye exam: Present: normal appearance, PERRL, EOMI. Absent: scleral icterus, conjunctival injection ENT exam: Present: mucous membranes dry Neck exam: Present: normal inspection, full ROM. Absent: tenderness, meningismus Respiratory exam: Present: normal lung sounds bilaterally. Absent: respiratory distress, wheezes, rales, rhonchi, stridor Cardiovascular Exam: Present: regular rate, normal rhythm, normal heart sounds Neurological exam: Present: alert, oriented X3, CN II-XII intact. Absent: motor sensory deficit Skin exam: Present: warm, dry, intact, normal color. Absent: rash Course Vital Signs 06/23/21 06/24/21 06/24/21 23:06 00:57 03:23 Temperature 98.3 F Pulse Rate 73 76 78 Respiratory 18 19 18 Rate Blood Pressure 114/51 114/80 118/69 O2 Sat by Pulse 93 L 98 97 Oximetry Medical Decision Making - Medical Decision Making Patient stated she was feeling better following medications and wanted to go home. Disposition Clinical Impression: Headache Disposition: HOME SELF-CARE Condition: Good Instructions (If sedation given, give patient instructions): Acute Headache (ED) Is patient prescribed a controlled substance at d/c from ED?: No Referrals: Tai Felix MD [Primary Care Provider] - 1-2 days
[2021-06-24 03:24] VITALS: BP 118/69; PULSE 78; RESP 18
== END 2021-06-24 03:49 | disposition home or self-care (01) ==
LOC: EC 22:53
DX: R51.9 Headache, unspecified (principal); R50.9 Fever, unspecified; R63.1 Polydipsia; J45.909 Unspecified asthma, uncomplicated; I11.0 Hypertensive heart disease with heart failure; I50.810 Right heart failure, unspecified; Z79.51 Long term (current) use of inhaled steroids; Z79.899 Other long term (current) drug therapy; Z88.0 Allergy status to penicillin; Z88.2 Allergy status to sulfonamides; Z88.6 Allergy status to analgesic agent; Z91.048 Other nonmedicinal substance allergy status; Z91.018 Allergy to other foods
CPT/HCPCS: 70450; 99284